=== PATIENT | female | born 1925 | race Caucasian/White ===

== ENCOUNTER 2017-03-30 19:29 | Inpatient (IN) | payer MEDICARE ==
[~2017-03-30] VITALS: Ht 154.9 cm; Wt 63.6 kg
[2017-03-30] MEDS ORDERED: ASPIRIN ENTERIC COATED 325 MG TABLET.DR. PO ONE (20:00)
[2017-03-30] MEDS ORDERED: IV NORMAL SALINE 1000ML BAG 1,000 ML IV SCH (20:00)
--- NOTE | 2017-03-30 20:04 | RAD ---
CT head without intravenous contrast History: Left facial droop, dysphagia. Code stroke. Comparison: None. Technique: Axial images are obtained of the head from the skull base through the vertex without IV contrast. Exposure: One or more of the following individualized dose reduction techniques were utilized for this examination: 1. Automated exposure control 2. Adjustment of the mA and/or kV according to patient size 3. Use of iterative reconstruction technique Findings: The ventricles are appropriate in size, shape, and location for the patient's age. No obvious intracranial mass, mass-effect, midline shift, or hemorrhage is identified. Basilar cisterns are patent. A well-defined area of low-attenuation is seen involving the medial inferior left cerebellar hemisphere measuring about 4.3 x 2.1 cm in maximum axial dimension. This is compatible with subacute left cerebellar infarction, probably in the left posterior inferior cerebellar artery territory. Moderate nonspecific periventricular and subcortical white matter low-attenuation is seen, likely representing changes of chronic microvascular ischemic disease. Bone windows demonstrate no acute calvarial abnormality. Mild left maxillary sinus disease is seen. Impression: 1. Subacute left cerebellar infarction. 2. Nonspecific white matter changes, probably from chronic microvascular ischemic disease. 3. Results discussed with emergency department staff, Dr. Pham, at 2000 hours. Electronically signed by: Christ Leos MD (03/30/2017 8:00 PM)
[2017-03-30 20:27] LABS: BASO # 0.1 x10^3/uL (0.0-0.2); BASO % 1 % (0-3); EOS % 2 % (0-3); HEMATOCRIT 33.4 % (36.0-47.0); HEMOGLOBIN 11.1 g/dL (12.0-15.5); LYMPH # 1.9 x10^3/uL (1.0-4.8); LYMPH % 18 % (24-48); MEAN CORPUSCULAR HEMOGLOBIN 28 pg (25-35); MEAN CORPUSCULAR HGB CONC 33 g/dL (31-37); MEAN CORPUSCULAR VOLUME 85 fL (79-100); MONO % 8 % (0-9); NEUT % 72 % (31-73); PLATELET COUNT 372 x10^3/uL (140-400); RED BLOOD COUNT 3.95 x10^6/uL (3.50-5.40); RED CELL DISTRIBUTION WIDTH 14.6 % (11.5-14.5); WHITE BLOOD COUNT 10.7 x10^3/uL (4.0-11.0)
--- NOTE | 2017-03-30 20:28 | PHYS DOC ---
Past Medical History Past Medical History: Anxiety, Arthritis, Constipation, GERD, Hypertension, Other Additional Past Medical Histor: VERTIGO Additional Past Surgical Histo: UNKNOWN SURGICAL HISTORY Alcohol Use: None Drug Use: None Adult General Chief Complaint Chief Complaint: ALTERED MENTAL STATUS HPI HPI Patient is a 89 year old female who presents with complaint of right-sided facial droop. The patient was brought into the emergency department by EMS. Patient was last seen at her baseline at approximate 1700 today. The patient had a syncopal episode shortly after that, and when the patient came to she had noted slurring of speech and right-sided facial droop per the patient's granddaughter. The patient's granddaughter called the ambulance and patient was brought to the emergency department for further evaluation. Patient states that she is having headache and dizziness at this time. Patient denies shortness breath or chest pain. The patient was recently admitted to [facility] after she had a fall with resultant closed head injury after striking her head on concrete. The patient was treated and released from the hospital. Patient states that she has had persistent headaches and mild dizziness since her hospital stay. Patient denies any nausea, vomiting, or vision loss. Review of Systems Review of Systems Constitutional: Denies fever or chills [] Eyes: Denies change in visual acuity, redness, or eye pain [] HENT: Denies nasal congestion or sore throat [] Respiratory: Denies cough or shortness of breath [] Cardiovascular: Denies chest pain or edema [] GI: Denies abdominal pain, nausea, vomiting, bloody stools or diarrhea [] : Denies dysuria or hematuria [] Musculoskeletal: Denies back pain or joint pain [] Integument: Denies rash or skin lesions [] Neurologic: Headache, dizziness, right-sided facial droop, left-sided loss of sensation [] Current Medications Current Medications Current Medications Medications (Trade) Dose Ordered Sig/Shyla Start Time Stop Time Status Last Admin Dose Admin Aspirin (Ecotrin) 325 mg 1X ONCE 03/30/17 20:00 03/30/17 20:32 DC 03/30/17 20:27 325 MG Sodium Chloride 1,000 ml @ 1,000 mls/hr Q1H 03/30/17 20:00 03/30/17 20:59 DC 03/30/17 20:27 1,000 MLS/HR Allergies Allergies Physical Exam Physical Exam Constitutional: Alert, afebrile, no acute distress. [] HENT: Normocephalic, atraumatic, bilateral external ears normal, oropharynx moist, no oral exudates, nose normal. [] Eyes: PERRLA, EOMI, conjunctiva normal, no discharge. [] Neck: Normal range of motion, no tenderness, supple, no stridor. [] Cardiovascular:Heart rate regular rhythm, no murmur [] Lungs & Thorax: Bilateral breath sounds clear to auscultation [] Abdomen: Bowel sounds normal, soft, no tenderness, no masses, no pulsatile masses. [] Skin: Warm, dry, no erythema, no rash. [] Back: No tenderness, no CVA tenderness. [] Extremities: No tenderness, no cyanosis, no clubbing, ROM intact, no edema. [] Neurologic: Alert and oriented X 3, right-sided facial droop that is forehead sparing, equal metal spray operator strength bilaterally, 4 out of 5 proximal left upper and lower motor strength, decreased sensation to light touch along left upper and lower extremity, no pronator drift. [] Current Patient Data Vital Signs Vital Signs Date Time Temp Pulse Resp B/P (MAP) Pulse Ox O2 Delivery O2 Flow Rate FiO2 03/30/17 20:15 64 171/77 (108) 97 Room Air 03/30/17 19:30 97.9 20 97.9 Lab Values Laboratory Tests Test 03/30/17 20:19 White Blood Count 10.7 x10^3/uL (4.0-11.0) Red Blood Count 3.95 x10^6/uL (3.50-5.40) Hemoglobin 11.1 g/dL (12.0-15.5) L Hematocrit 33.4 % (36.0-47.0) L Mean Corpuscular Volume 85 fL (79-100) Mean Corpuscular Hemoglobin 28 pg (25-35) Mean Corpuscular Hemoglobin Concent 33 g/dL (31-37) Red Cell Distribution Width 14.6 % (11.5-14.5) H Platelet Count 372 x10^3/uL (140-400) Neutrophils (%) (Auto) 72 % (31-73) Lymphocytes (%) (Auto) 18 % (24-48) L Monocytes (%) (Auto) 8 % (0-9) Eosinophils (%) (Auto) 2 % (0-3) Basophils (%) (Auto) 1 % (0-3) Neutrophils # (Auto) 7.7 x10^3uL (1.8-7.7) Lymphocytes # (Auto) 1.9 x10^3/uL (1.0-4.8) Monocytes # (Auto) 0.9 x10^3/uL (0.0-1.1) Eosinophils # (Auto) 0.2 x10^3/uL (0.0-0.7) Basophils # (Auto) 0.1 x10^3/uL (0.0-0.2) Prothrombin Time 12.9 SEC (11.7-14.0) Prothrombin Time INR 1.0 (0.8-1.1) PTT 27 SEC (24-38) Sodium Level 135 mmol/L (136-145) L Potassium Level 3.9 mmol/L (3.5-5.1) Chloride Level 97 mmol/L (98-107) L Carbon Dioxide Level 26 mmol/L (21-32) Anion Gap 12 (6-14) Blood Urea Nitrogen 17 mg/dL (7-20) Creatinine 1.0 mg/dL (0.6-1.0) Estimated GFR (Cockcroft-Gault) 52.2 BUN/Creatinine Ratio 17 (6-20) Glucose Level 116 mg/dL (70-99) H Calcium Level 9.3 mg/dL (8.5-10.1) Total Bilirubin 0.2 mg/dL (0.2-1.0) Aspartate Amino Transferase (AST) 22 U/L (15-37) Alanine Aminotransferase (ALT) 20 U/L (14-59) Alkaline Phosphatase 87 U/L (46-116) Total Protein 8.7 g/dL (6.4-8.2) H Albumin 3.7 g/dL (3.4-5.0) Albumin/Globulin Ratio 0.7 (1.0-1.7) L Laboratory Tests 03/30/17 20:19 Laboratory Tests 03/30/17 20:19 EKG EKG Interpreted by me: Heart rate 65, sinus rhythm, prolonged QT interval, normal axis, no acute ST/T-wave abnormalities present [] Radiology/Procedures Radiology/Procedures [facility] [address] [place] [address] IMAGING REPORT Signed PATIENT: JONAS HERNANDEZ ACCOUNT: [id number] : 1925 LOCATION: ER AGE: 89 SEX: F EXAM STATUS: REG ER ORD. PHYSICIAN: ALLYSSA PHAM MD REASON: right-sided facial droop PROCEDURE: CT CODE STROKE HEAD WO CT head without intravenous contrast History: Left facial droop, dysphagia. Code stroke. Comparison: None. Technique: Axial images are obtained of the head from the skull base through the vertex without IV contrast. Exposure: One or more of the following individualized dose reduction techniques were utilized for this examination: 1. Automated exposure control 2. Adjustment of the mA and/or kV according to patient size 3. Use of iterative reconstruction technique Findings: The ventricles are appropriate in size, shape, and location for the patient's age. No obvious intracranial mass, mass-effect, midline shift, or hemorrhage is identified. Basilar cisterns are patent. A well-defined area of low-attenuation is seen involving the medial inferior left cerebellar hemisphere measuring about 4.3 x 2.1 cm in maximum axial dimension. This is compatible with subacute left cerebellar infarction, probably in the left posterior inferior cerebellar artery territory. Moderate nonspecific periventricular and subcortical white matter low-attenuation is seen, likely representing changes of chronic microvascular ischemic disease. Bone windows demonstrate no acute calvarial abnormality. Mild left maxillary sinus disease is seen. Impression: 1. Subacute left cerebellar infarction. 2. Nonspecific white matter changes, probably from chronic microvascular ischemic disease. 3. Results discussed with emergency department staff, Dr. Pham, at 2000 hours. Electronically signed by: Christ Schaeffer MD (03/30/2017 8:00 PM) DICTATED and SIGNED BY: CHRIST SCHAEFFER MD DATE: 03/30/171954 CC: ALLYSSA PHAM MD; EDWINA CHEUNG MD ~ [] Course & Med Decision Making Course & Med Decision Making Pertinent Labs and Imaging studies reviewed. (See chart for details) Patient's NIH score was initially 4 upon arrival. Patient's head CT showed evidence of subacute left cerebellar stroke. Given the CT findings, the patient is not a candidate for TPA. I spoke with Dr. Rivera who agreed with assessment and agreed with initiation of aspirin therapy and supportive care. Patient will be admitted the hospital for further treatment and workup. I spoke with Dr. Perez who accepted care patient in hospital. Dragon Disclaimer Dragon Disclaimer This electronic medical record was generated, in whole or in part, using a voice recognition dictation system. Departure Departure Impression: Primary Impression: Acute CVA (cerebrovascular accident) Disposition: ADMITTED INPATIENT Admitting Physician: Pam Perez Condition: GUARDED Referrals: EDWINA CHEUNG MD (PCP) ALLYSSA PHAM MD Mar 30, 2017 20:28
--- NOTE | 2017-03-30 20:35 | ACF ---
Admission Forms Criteria TELEMETRY CARE Telemetry Admission Guidelines (Place 'X' for any and all applicable criteria): Admission to telemetry [A] may be indicated for ANY ONE of the following(1)(2)(3 )(4)(5): [ ]I. Cardiac disease, including ANY ONE of the following (9)(10)(11)(12)(13 ): [ ]a) Postacute OR [ ]b) Low-risk patients with ST-segment elevation OR who have undergone successful percutaneous coronary intervention [ ]c) Unstable angina [ ]d) Suspected OR (until it is ruled out) [ ]e) Post cardiac surgery (first 48 to 72 hours unless complications occur) [ ]f) Acute arrhythmias (including significant tachycardia or bradycardia) [B] [ ]g) Firing of an implantable cardioverter defibrillator [C] [ ]h) Suspected pacemaker or implantable cardioverter defibrillator malfunction (10) [ ]i) New administration or adjustment of an antiarrhythmic drug [D ] [ ]j) Child admitted for acute congestive heart failure [ ]j) Long QT syndrome [ ]k) Advanced heart block (eg, second-degree Mobitz type II, third- degree heart block) [ ]l) Acute myocarditis or pericarditis [ ]m) Short-term (ambulatory or inpatient) monitoring after a cardiac procedure as indicated by ANY ONE of the following [E]: [ ]i) Electrophysiologic studies [ ]ii) Percutaneous coronary intervention with stent placement [ ]iii) Pacemaker placement with cardiac conduction defect [ ]iv) Implantable cardiac defibrillator placement [ ]II. Drug overdose or poisoning with substance that causes arrhythmias or QT prolongation (eg, phenothiazines, sympathomimetic agents, cyclic antidepressants, digitalis, antiarrhythmic drugs)(15) [ ]III. Short-term (ambulatory or inpatient) monitoring after therapeutic or diagnostic procedure requiring conscious sedation or anesthesia (eg, endoscopy, elective cardioversion) [X]IV. Acute cerebrovascular even[F](18) [ ]V. Massive blood transfusion (eg, at least 10 units of packed red blood cells in 24 hours) [ ]. Variceal bleeding after endoscopy, sclerotherapy, or IV vasopressin [ ]VII. Uncorrected electrolyte abnormalities associated with an increased risk of dangerous arrhythmia [G]; examples include [ ]a) Hyperkalemia with attributable ECG changes [ ]b) Potassium greater than 6.5 mmol/L (mEq/L) in a patient without history of chronic renal disease [ ]c) Prolonged QT attributed to hypokalemia, hypomagnesemia, or hypocalcemia [ ]VIII.Unexplained syncope or other neurologic event suspected of being due to arrhythmia due to a finding that increases risk; examples include(19)(20)(21): [ ]a) High-risk ECG findings (eg, bifascicular block, bradycardia, abnormal QT interval, ventricular pre- excitation) [ ]b) History of previous syncope due to arrhythmia [ ]c) Abnormal ventricular function (eg, reduced ejection fraction ) [ ]d) Exertional or supine syncope [ ]e) Concerning syncope characteristics (eg, sudden loss of consciousness without prodrome) [ ]f) Family history of sudden [ ]g) Use of arrhythmogenic medication [ ]h) Suspected cardiac ischemia [ ]i) Known channelopathy (eg, long QT syndrome, Brugada syndrome, or catecholaminergic paroxysmal ventricular tachycardia) [ ]j) Known structural heart disease (eg, hypertrophic cardiomyopathy , severe valvular disease) [ ]k) Palpitations preceding syncope The original [employer] content created by [employer] has been revised. The portions of the content which have been revised are identified through the use of italic text or in bold, and [email or web address] includes the [email or web address] has neither reviewed nor approved the modified material. All other unmodified content is copyright [employer]. Please see references footnoted in the original [employer] edition 2016 Admission Criteria Met?: Yes HELGA FERMIN Mar 30, 2017 20:35
[2017-03-30 20:40] LABS: PROTHROMBIN TIME PATIENT 12.9 SEC (11.7-14.0)
[2017-03-30 20:43] LABS: CALCIUM 9.3 mg/dL (8.5-10.1); GFR 52.2; POTASSIUM 3.9 mmol/L (3.5-5.1)
[2017-03-30 20:46] LABS: BILIRUBIN,URINE NEGATIVE (NEG); GLUCOSE,URINE NEGATIVE (NEG); NITRITE,URINE NEGATIVE (NEG); PROTEIN,URINE 100 mg/dL (NEG-TRACE); UROBILINOGEN,URINE 0.2 mg/dL (0.2 mg/dL)
[2017-03-30 20:49] LABS: ALBUMIN 3.7 g/dL (3.4-5.0); ALBUMIN/GLOBULIN RATIO 0.7 (1.0-1.7); TOTAL BILIRUBIN 0.2 mg/dL (0.2-1.0); TOTAL PROTEIN 8.7 g/dL (6.4-8.2)
[2017-03-30 20:59] LABS: BACTERIA,URINE 0 /HPF (0-FEW); WBC,URINE 0 /HPF (0-4)
[2017-03-30 21:05] VITALS: BP 160/72
[2017-03-30] MEDS ORDERED: fentaNYL PF VIAL 100 MCG/2 ML VIAL IV PRN (21:30)
[2017-03-30] MEDS ORDERED: ONDANSETRON PF 4 MG/2 ML VIAL. IV PRN (21:30)
[2017-03-30] MEDS ORDERED: ACETAMINOPHEN 325 MG TABLET. PO PRN (21:30)
[2017-03-30] MEDS: IV NORMAL SALINE 1000ML BAG 1,000 ML IV SCH (22:30)
--- NOTE | 2017-03-30 22:49 | PDOC1 ---
History and Physical Date of Admission Date of Admission DATE: 03/30/17 TIME: 22:49 Current Problem List Problem List Problems Medical Problems: (1) Acute CVA (cerebrovascular accident) Status: Acute Problems: Current Medications Current Medications Current Medications Sodium Chloride 1,000 ml @ 1,000 mls/hr Q1H IV Last administered on 03/30/17 20:27; Start 03/30/17 at 20:00; Stop 03/30/17 at 20:59; Status DC Aspirin (Ecotrin) 325 mg 1X ONCE PO Last administered on 03/30/17 20:27; Start 03/30/17 at 20:00; Stop 03/30/17 at 20:32; Status DC Ondansetron HCl (Zofran) 4 mg PRN Q8HRS PRN IV NAUSEA/VOMITING; Start 03/30/17 at 21:30; Stop 03/31/17 at 21:29 Fentanyl Citrate (Fentanyl 2ml Vial) 50 mcg PRN Q2HR PRN IV PAIN; Start at 21:30; Stop 03/31/17 at 21:29 Sodium Chloride 1,000 ml @ 100 mls/hr Q10H IV Last administered on 03/30/17 22:30; Start 03/30/17 at 21:17; Stop 03/31/17 at 21:16 Acetaminophen (Tylenol) 650 mg PRN Q4HRS PRN PO FEVER; Start 03/30/17 at 21:30 ; Stop 03/31/17 at 21:29 Aspirin (Angelica Aspirin) 325 mg [id number] PO ; Start 03/31/17 at 08:00 Allergies Allergies: Coded Allergies: Penicillins (Verified Allergy, Unknown, 03/30/17) codeine (Verified Allergy, Unknown, 03/30/17) ether (Verified Allergy, Unknown, 03/30/17) nisoldipine (Verified Allergy, Unknown, 03/30/17) oxytetracycline (Verified Allergy, Unknown, 03/30/17) propoxyphene (Verified Allergy, Unknown, 03/30/17) Vitals Vitals Vital Signs Date Time Temp Pulse Resp B/P (MAP) Pulse Ox O2 Delivery O2 Flow Rate FiO2 03/30/17 21:05 97.8 66 28 160/72 (101) 98 Room Air 97.8 Labs Labs Laboratory Tests Test 03/30/17 20:19 6/26/17 20:38 White Blood Count 10.7 x10^3/uL (4.0-11.0) Red Blood Count 3.95 x10^6/uL (3.50-5.40) Hemoglobin 11.1 g/dL (12.0-15.5) Hematocrit 33.4 % (36.0-47.0) Mean Corpuscular Volume 85 fL (79-100) Mean Corpuscular Hemoglobin 28 pg (25-35) Mean Corpuscular Hemoglobin Concent 33 g/dL (31-37) Red Cell Distribution Width 14.6 % (11.5-14.5) Platelet Count 372 x10^3/uL (140-400) Neutrophils (%) (Auto) 72 % (31-73) Lymphocytes (%) (Auto) 18 % (24-48) Monocytes (%) (Auto) 8 % (0-9) Eosinophils (%) (Auto) 2 % (0-3) Basophils (%) (Auto) 1 % (0-3) Neutrophils # (Auto) 7.7 x10^3uL (1.8-7.7) Lymphocytes # (Auto) 1.9 x10^3/uL (1.0-4.8) Monocytes # (Auto) 0.9 x10^3/uL (0.0-1.1) Eosinophils # (Auto) 0.2 x10^3/uL (0.0-0.7) Basophils # (Auto) 0.1 x10^3/uL (0.0-0.2) Prothrombin Time 12.9 SEC (11.7-14.0) Prothromb Time International Ratio 1.0 (0.8-1.1) Activated Partial Thromboplast Time 27 SEC (24-38) Sodium Level 135 mmol/L (136-145) Potassium Level 3.9 mmol/L (3.5-5.1) Chloride Level 97 mmol/L (98-107) Carbon Dioxide Level 26 mmol/L (21-32) Anion Gap 12 (6-14) Blood Urea Nitrogen 17 mg/dL (7-20) Creatinine 1.0 mg/dL (0.6-1.0) Estimated GFR (Cockcroft-Gault) 52.2 BUN/Creatinine Ratio 17 (6-20) Glucose Level 116 mg/dL (70-99) Calcium Level 9.3 mg/dL (8.5-10.1) Total Bilirubin 0.2 mg/dL (0.2-1.0) Aspartate Amino Transf (AST/SGOT) 22 U/L (15-37) Alanine Aminotransferase (ALT/SGPT) 20 U/L (14-59) Alkaline Phosphatase 87 U/L (46-116) Total Protein 8.7 g/dL (6.4-8.2) Albumin 3.7 g/dL (3.4-5.0) Albumin/Globulin Ratio 0.7 (1.0-1.7) Urine Collection Type U cath Urine Color Yellow Urine Clarity Clear Urine pH 6.0 Urine Specific [place] 1.010 Urine Protein 100 mg/dL (NEG-TRACE) Urine Glucose (UA) Negative mg/dL (NEG) Urine Ketones (Stick) Negative mg/dL (NEG) Urine Blood Trace (NEG) Urine Nitrite Negative (NEG) Urine Bilirubin Negative (NEG) Urine Urobilinogen Dipstick 0.2 mg/dL (0.2 mg/dL) Urine Leukocyte Esterase Negative (NEG) Urine RBC 1-2 /HPF (0-2) Urine WBC 0 /HPF (0-4) Urine Bacteria 0 /HPF (0-FEW) Urine Mucus Mod /LPF Laboratory Tests Test 03/30/17 20:19 03/30/17 20:38 White Blood Count 10.7 x10^3/uL (4.0-11.0) Red Blood Count 3.95 x10^6/uL (3.50-5.40) Hemoglobin 11.1 g/dL (12.0-15.5) Hematocrit 33.4 % (36.0-47.0) Mean Corpuscular Volume 85 fL (79-100) Mean Corpuscular Hemoglobin 28 pg (25-35) Mean Corpuscular Hemoglobin Concent 33 g/dL (31-37) Red Cell Distribution Width 14.6 % (11.5-14.5) Platelet Count 372 x10^3/uL (140-400) Neutrophils (%) (Auto) 72 % (31-73) Lymphocytes (%) (Auto) 18 % (24-48) Monocytes (%) (Auto) 8 % (0-9) Eosinophils (%) (Auto) 2 % (0-3) Basophils (%) (Auto) 1 % (0-3) Neutrophils # (Auto) 7.7 x10^3uL (1.8-7.7) Lymphocytes # (Auto) 1.9 x10^3/uL (1.0-4.8) Monocytes # (Auto) 0.9 x10^3/uL (0.0-1.1) Eosinophils # (Auto) 0.2 x10^3/uL (0.0-0.7) Basophils # (Auto) 0.1 x10^3/uL (0.0-0.2) Prothrombin Time 12.9 SEC (11.7-14.0) Prothromb Time International Ratio 1.0 (0.8-1.1) Activated Partial Thromboplast Time 27 SEC (24-38) Sodium Level 135 mmol/L (136-145) Potassium Level 3.9 mmol/L (3.5-5.1) Chloride Level 97 mmol/L (98-107) Carbon Dioxide Level 26 mmol/L (21-32) Anion Gap 12 (6-14) Blood Urea Nitrogen 17 mg/dL (7-20) Creatinine 1.0 mg/dL (0.6-1.0) Estimated GFR (Cockcroft-Gault) 52.2 BUN/Creatinine Ratio 17 (6-20) Glucose Level 116 mg/dL (70-99) Calcium Level 9.3 mg/dL (8.5-10.1) Total Bilirubin 0.2 mg/dL (0.2-1.0) Aspartate Amino Transf (AST/SGOT) 22 U/L (15-37) Alanine Aminotransferase (ALT/SGPT) 20 U/L (14-59) Alkaline Phosphatase 87 U/L (46-116) Total Protein 8.7 g/dL (6.4-8.2) Albumin 3.7 g/dL (3.4-5.0) Albumin/Globulin Ratio 0.7 (1.0-1.7) Urine Collection Type U cath Urine Color Yellow Urine Clarity Clear Urine pH 6.0 Urine Specific [place] 1.010 Urine Protein 100 mg/dL (NEG-TRACE) Urine Glucose (UA) Negative mg/dL (NEG) Urine Ketones (Stick) Negative mg/dL (NEG) Urine Blood Trace (NEG) Urine Nitrite Negative (NEG) Urine Bilirubin Negative (NEG) Urine Urobilinogen Dipstick 0.2 mg/dL (0.2 mg/dL) Urine Leukocyte Esterase Negative (NEG) Urine RBC 1-2 /HPF (0-2) Urine WBC 0 /HPF (0-4) Urine Bacteria 0 /HPF (0-FEW) Urine Mucus Mod /LPF MARY NELSON MD Mar 30, 2017 22:49
[2017-03-30 23:00] VITALS: BP 169/73
--- NOTE | 2017-03-30 23:22 | PDOC1 ---
History and Physical Date of Admission Date of Admission DATE: 03/30/17 TIME: 23:15 Identification/Chief Complaint Chief Complaint facial droop Problems: Source Source: Caregiver, Chart review, Patient History of Present Illness History of Present Illness Ms. Abbasi was in Dr. moses office today for f/u of concussion from last week. Fell a week ago, was at [place], MRI done, post-concussion only. Then today, 1700, sudden onset of left sided facial droop and slurring her speech. Symptoms noticed by her granddaughter, pt denies that she felt any different or had any problem she has been largely healthy, very compliant with meds, does not drive due to Vertigo, 1 yr vertigo, meclizine PRN helps Past Medical History Cardiovascular: HTN Psych: No pertinent hx Family History Family History: No Significant Social History Smoke: No ALCOHOL: none Drugs: None Current Problem List Problem List Problems Medical Problems: (1) Acute CVA (cerebrovascular accident) Status: Acute Problems: Current Medications Current Medications Current Medications Sodium Chloride 1,000 ml @ 1,000 mls/hr Q1H IV Last administered on 03/30/17 20:27; Start 03/30/17 at 20:00; Stop 03/30/17 at 20:59; Status DC Aspirin (Ecotrin) 325 mg 1X ONCE PO Last administered on 03/30/17 20:27; Start 03/30/17 at 20:00; Stop 03/30/17 at 20:32; Status DC Ondansetron HCl (Zofran) 4 mg PRN Q8HRS PRN IV NAUSEA/VOMITING; Start 03/30/17 at 21:30; Stop 03/31/17 at 21:29 Fentanyl Citrate (Fentanyl 2ml Vial) 50 mcg PRN Q2HR PRN IV PAIN; Start at 21:30; Stop 03/31/17 at 21:29 Sodium Chloride 1,000 ml @ 100 mls/hr Q10H IV Last administered on 03/30/17 22:30; Start 03/30/17 at 21:17; Stop 03/31/17 at 21:16 Acetaminophen (Tylenol) 650 mg PRN Q4HRS PRN PO FEVER; Start 03/30/17 at 21:30 ; Stop 03/31/17 at 21:29 Aspirin (Angelica Aspirin) 325 mg DAILYWBKFT PO ; Start 03/31/17 at 08:00 Allergies Allergies: Coded Allergies: Iodinated Contrast- Oral and IV Dye (Verified Allergy, Severe, 03/30/17) Horse/Equine Containing Products (Verified Allergy, Intermediate, 03/30/17) Penicillins (Verified Allergy, Intermediate, 03/30/17) Sulfa (Sulfonamide Antibiotics) (Verified Allergy, Intermediate, 03/30/17) codeine (Verified Allergy, Intermediate, 03/30/17) ether (Verified Allergy, Intermediate, 03/30/17) mercury (elemental) (Verified Allergy, Intermediate, 03/30/17) nisoldipine (Verified Allergy, Intermediate, 03/30/17) oxytetracycline (Verified Allergy, Intermediate, 03/30/17) propoxyphene (Verified Allergy, Intermediate, 03/30/17) ROS General: YES: Appetite, No: Chills, Night Sweats, Fatigue, Malaise, Other PSYCHOLOGICAL ROS: YES: Sleep disturbances, No: Anxiety, Behavioral Disorder, Concentration difficultie, Decreased libido , Depression, Disorientation, Hallucinations, Hostility, Irritablity, Memory difficulties, Mood Swings, Obsessive thoughts, Other Eyes: No Blurry vision, No Decreased vision, No Double vision, No Dry eyes, No Excessive tearing, No Eye Pain, No Itchy Eyes, No Loss of vision, No Photophobia , No Scotomata, No Uses contacts, No Uses glasses, No Other HEENT: YES: Heacaches, No: Visual Changes, Hearing change, Nasal congestion, Nasal discharge, Oral lesions, Sinus pain, Sore Throat, Epistaxis, Sneezing, Snoring, Tinnitus, Vertigo, Vocal changes, Other Cardiovascular: No Chest Pain, No Palpitations, No Orthopnea, No Paroxysmal Noc. Dyspnea, No Edema, No Lt Headedness, No Other Gastrointestinal: No Nausea, No Vomiting, No Abdominal Pain, No Diarrhea, No Constipation, No Melena, No Hematochezia, No Other Genitourinary: No Dysuria, No Frequency, No Incontinence, No Hematuria, No Retention, No Discharge, No Urgency, No Pain, No Flank Pain, No Other, No , No , No , No , No , No , No Musculoskeletal: Yes Joint Stiffness, No Gait Disturbance, No Joint Pain, No Joint Swelling, No Muscle Pain, No Muscular Weakness, No Pain In:, No Swelling In:, No Other Neurological: Yes Dizziness, Yes Other (hard of hearing), No Behavorial Changes, No Bowel/Bladder ControlChng, No Confusion, No Gait Disturbance, No Headaches, No Impaired Coord/balance, No Memory Loss, No Numbness/Tingling, No Seizures, No Speech Problems, No Tremors, No Visual Changes Skin: No Dry Skin, No Eczema, No Hair Changes, No Lumps, No Mole Changes, No Mottling, No Nail Changes, No Pruritus, No Rash, No Skin Lesion Changes, No Other, No Acne Physical Exam General: Alert, Oriented X3, Cooperative, No acute distress HEENT: Atraumatic, EOMI, Mucous membr. moist/pink Lungs: Clear to auscultation Heart: no gallops, no murmurs Abdomen: Normal bowel sounds, Soft Rectal Exam: not examined Extremities: No clubbing, No edema Skin: No rashes, No significant lesion Neuro: Normal speech, Strength at 5/5 X4 ext, Normal tone, Sensation intact, Other (good facial str and symmetry) Psych/Mental Status: Mental status NL, Mood NL Vitals Vitals Vital Signs Date Time Temp Pulse Resp B/P (MAP) Pulse Ox O2 Delivery O2 Flow Rate FiO2 03/30/17 21:05 97.8 66 28 160/72 (101) 98 Room Air 97.8 Labs Labs Laboratory Tests Test 03/30/17 20:19 03/30/17 20:38 White Blood Count 10.7 x10^3/uL (4.0-11.0) Red Blood Count 3.95 x10^6/uL (3.50-5.40) Hemoglobin 11.1 g/dL (12.0-15.5) Hematocrit 33.4 % (36.0-47.0) Mean Corpuscular Volume 85 fL (79-100) Mean Corpuscular Hemoglobin 28 pg (25-35) Mean Corpuscular Hemoglobin Concent 33 g/dL (31-37) Red Cell Distribution Width 14.6 % (11.5-14.5) Platelet Count 372 x10^3/uL (140-400) Neutrophils (%) (Auto) 72 % (31-73) Lymphocytes (%) (Auto) 18 % (24-48) Monocytes (%) (Auto) 8 % (0-9) Eosinophils (%) (Auto) 2 % (0-3) Basophils (%) (Auto) 1 % (0-3) Neutrophils # (Auto) 7.7 x10^3uL (1.8-7.7) Lymphocytes # (Auto) 1.9 x10^3/uL (1.0-4.8) Monocytes # (Auto) 0.9 x10^3/uL (0.0-1.1) Eosinophils # (Auto) 0.2 x10^3/uL (0.0-0.7) Basophils # (Auto) 0.1 x10^3/uL (0.0-0.2) Prothrombin Time 12.9 SEC (11.7-14.0) Prothromb Time International Ratio 1.0 (0.8-1.1) Activated Partial Thromboplast Time 27 SEC (24-38) Sodium Level 135 mmol/L (136-145) Potassium Level 3.9 mmol/L (3.5-5.1) Chloride Level 97 mmol/L (98-107) Carbon Dioxide Level 26 mmol/L (21-32) Anion Gap 12 (6-14) Blood Urea Nitrogen 17 mg/dL (7-20) Creatinine 1.0 mg/dL (0.6-1.0) Estimated GFR (Cockcroft-Gault) 52.2 BUN/Creatinine Ratio 17 (6-20) Glucose Level 116 mg/dL (70-99) Calcium Level 9.3 mg/dL (8.5-10.1) Total Bilirubin 0.2 mg/dL (0.2-1.0) Aspartate Amino Transf (AST/SGOT) 22 U/L (15-37) Alanine Aminotransferase (ALT/SGPT) 20 U/L (14-59) Alkaline Phosphatase 87 U/L (46-116) Total Protein 8.7 g/dL (6.4-8.2) Albumin 3.7 g/dL (3.4-5.0) Albumin/Globulin Ratio 0.7 (1.0-1.7) Urine Collection Type U cath Urine Color Yellow Urine Clarity Clear Urine pH 6.0 Urine Specific [place] 1.010 Urine Protein 100 mg/dL (NEG-TRACE) Urine Glucose (UA) Negative mg/dL (NEG) Urine Ketones (Stick) Negative mg/dL (NEG) Urine Blood Trace (NEG) Urine Nitrite Negative (NEG) Urine Bilirubin Negative (NEG) Urine Urobilinogen Dipstick 0.2 mg/dL (0.2 mg/dL) Urine Leukocyte Esterase Negative (NEG) Urine RBC 1-2 /HPF (0-2) Urine WBC 0 /HPF (0-4) Urine Bacteria 0 /HPF (0-FEW) Urine Mucus Mod /LPF Laboratory Tests Test 03/30/17 20:19 03/30/17 20:38 White Blood Count 10.7 x10^3/uL (4.0-11.0) Red Blood Count 3.95 x10^6/uL (3.50-5.40) Hemoglobin 11.1 g/dL (12.0-15.5) Hematocrit 33.4 % (36.0-47.0) Mean Corpuscular Volume 85 fL (79-100) Mean Corpuscular Hemoglobin 28 pg (25-35) Mean Corpuscular Hemoglobin Concent 33 g/dL (31-37) Red Cell Distribution Width 14.6 % (11.5-14.5) Platelet Count 372 x10^3/uL (140-400) Neutrophils (%) (Auto) 72 % (31-73) Lymphocytes (%) (Auto) 18 % (24-48) Monocytes (%) (Auto) 8 % (0-9) Eosinophils (%) (Auto) 2 % (0-3) Basophils (%) (Auto) 1 % (0-3) Neutrophils # (Auto) 7.7 x10^3uL (1.8-7.7) Lymphocytes # (Auto) 1.9 x10^3/uL (1.0-4.8) Monocytes # (Auto) 0.9 x10^3/uL (0.0-1.1) Eosinophils # (Auto) 0.2 x10^3/uL (0.0-0.7) Basophils # (Auto) 0.1 x10^3/uL (0.0-0.2) Prothrombin Time 12.9 SEC (11.7-14.0) Prothromb Time International Ratio 1.0 (0.8-1.1) Activated Partial Thromboplast Time 27 SEC (24-38) Sodium Level 135 mmol/L (136-145) Potassium Level 3.9 mmol/L (3.5-5.1) Chloride Level 97 mmol/L (98-107) Carbon Dioxide Level 26 mmol/L (21-32) Anion Gap 12 (6-14) Blood Urea Nitrogen 17 mg/dL (7-20) Creatinine 1.0 mg/dL (0.6-1.0) Estimated GFR (Cockcroft-Gault) 52.2 BUN/Creatinine Ratio 17 (6-20) Glucose Level 116 mg/dL (70-99) Calcium Level 9.3 mg/dL (8.5-10.1) Total Bilirubin 0.2 mg/dL (0.2-1.0) Aspartate Amino Transf (AST/SGOT) 22 U/L (15-37) Alanine Aminotransferase (ALT/SGPT) 20 U/L (14-59) Alkaline Phosphatase 87 U/L (46-116) Total Protein 8.7 g/dL (6.4-8.2) Albumin 3.7 g/dL (3.4-5.0) Albumin/Globulin Ratio 0.7 (1.0-1.7) Urine Collection Type U cath Urine Color Yellow Urine Clarity Clear Urine pH 6.0 Urine Specific [place] 1.010 Urine Protein 100 mg/dL (NEG-TRACE) Urine Glucose (UA) Negative mg/dL (NEG) Urine Ketones (Stick) Negative mg/dL (NEG) Urine Blood Trace (NEG) Urine Nitrite Negative (NEG) Urine Bilirubin Negative (NEG) Urine Urobilinogen Dipstick 0.2 mg/dL (0.2 mg/dL) Urine Leukocyte Esterase Negative (NEG) Urine RBC 1-2 /HPF (0-2) Urine WBC 0 /HPF (0-4) Urine Bacteria 0 /HPF (0-FEW) Urine Mucus Mod /LPF VTE Prophylaxis Ordered VTE Prophylaxis Devices: Yes VTE Pharmacological Prophylaxi: No Assessment/Plan Assessment/Plan CVA, acute CVA syndrome CT shows prior CVA. recent negative imaging improving very quickly, would be TIA without imaging support, plan w/u in AM, carotids, MRI, echo, lipids Neuro consult PT OT speech HTN, home meds not listed this PM, please rectify in AM admit MARY NELSON MD Mar 30, 2017 23:22
[2017-03-31] MEDS ORDERED: DOCU-109 PO (02:00)
[2017-03-31] MEDS ORDERED: LOPE2CAP3 PO (02:00)
[2017-03-31] MEDS ORDERED: AMLO10TA2 PO (02:00)
[2017-03-31] MEDS ORDERED: LANS30CA66 PO (02:00)
[2017-03-31] MEDS ORDERED: ATEN50TA PO (02:00)
[2017-03-31] MEDS ORDERED: SERT25TA PO (02:00)
[2017-03-31] MEDS ORDERED: CLON0.1T PO (02:00)
[2017-03-31] MEDS ORDERED: OLME40TA12 PO (02:00)
[2017-03-31] MEDS ORDERED: MECL25TA3 PO (02:00)
[2017-03-31] MEDS ORDERED: ACET325T9 PO (02:00)
[2017-03-31 03:00] VITALS: BP 158/69
[2017-03-31 05:28] LABS: BASO % 0 % (0-3); EOS % 1 % (0-3); HEMATOCRIT 30.3 % (36.0-47.0); HEMOGLOBIN 10.2 g/dL (12.0-15.5); LYMPH # 2.6 x10^3/uL (1.0-4.8); LYMPH % 26 % (24-48); MEAN CORPUSCULAR HEMOGLOBIN 28 pg (25-35); MEAN CORPUSCULAR HGB CONC 34 g/dL (31-37); MEAN CORPUSCULAR VOLUME 85 fL (79-100); MONO % 8 % (0-9); NEUT % 65 % (31-73); PLATELET COUNT 319 x10^3/uL (140-400); RED BLOOD COUNT 3.57 x10^6/uL (3.50-5.40); RED CELL DISTRIBUTION WIDTH 14.8 % (11.5-14.5); WHITE BLOOD COUNT 9.8 x10^3/uL (4.0-11.0)
[2017-03-31 05:40] LABS: CALCIUM 8.7 mg/dL (8.5-10.1); CREATININE 0.9 mg/dL (0.6-1.0); POTASSIUM 4.2 mmol/L (3.5-5.1)
[2017-03-31 05:45] LABS: CHOLESTEROL 332 mg/dL (0-200); HDLC 28 mg/dL (40-60); NON-HDL CHOLESTEROL 304 mg/dL (0-129)
[2017-03-31 05:59] LABS: TRIGLYCERIDES 623 mg/dL (0-150)
[2017-03-31 06:05] LABS: CHOLESTEROL/HDL RATIO 11.9
--- NOTE | 2017-03-31 06:35 | EKG ---
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
[2017-03-31 07:22] VITALS: BP 176/66
--- NOTE | 2017-03-31 07:44 | RAD ---
Indication: Facial droop and weakness. Grayscale, color-flow and duplex Doppler evaluation of bilateral carotid systems was performed. There is plaque identified in the distal common carotid arteries bilaterally and carotid bulbs, extending into the proximal internal and external carotid arteries. No significant velocity elevation within the common or internal carotid arteries is seen. Peak common carotid artery velocity on the right is 72 cm/s and on the left 72 cm/s. Peak ICA velocity on the right is 73 cm/s and on the left 62 cm/s. There are elevated velocities in the left external carotid artery reaching 241 cm/s. Both vertebral arteries demonstrate antegrade flow. ICA to CCA ratio on the right is 1.0 and on the left 0.9. Impression: Mild bilateral carotid plaque. There is no evidence of a hemodynamically significant stenosis within either common carotid or internal carotid artery system.
[2017-03-31] MEDS ORDERED: ASPIRIN 325 MG TABLET PO SCH (08:00)
[2017-03-31] MEDS ORDERED: ASPIRIN ENTERIC COATED 325 MG TABLET.DR. PO ONE (10:15)
[2017-03-31] MEDS: IV NORMAL SALINE 1000ML BAG 1,000 ML IV SCH ×2 (10:29→20:03)
[2017-03-31] MEDS ORDERED: ACETAMINOPHEN 325 MG TABLET. PO PRN ×2 (10:30→11:00)
--- NOTE | 2017-03-31 10:31 | PDOC2 ---
NEUROLOGY CONSULT Date of Admission Date of Admission DATE: 03/31/17 TIME: 10:23 Reason for Consult Reason for Consult: Stroke Referring Physician Referring Physician: Dr. Perez PCP: Dr. Hayes Source Source: Chart review, Patient History of Present Illness History of Present Illness The patient is an 89-year-old right-handed female who presented with right facial droop and leg weakness. Symptoms started at 1700 yesterday. The patient had some slurred speech, right facial droop, brief syncope, and then awakened with right leg and face weakness. In our emergency department NIH score was 4 and patient was improving. The patient was hospitalized at [facility] last week after concussion. She got dizzy and foul on concrete, striking her head with loss of consciousness. The patient denies any history of stroke, seizure, or other head injury. She is feeling better this morning. Past Medical History Cardiovascular: HTN CENTRAL NERVOUS SYSTEM: Vertigo, Other ( concussion) GI: Constipation, GERD Psych: Anxiety, Depression Musculoskeletal: Osteoarthritis Renal/: Other ( urinary hesitancy) Past Surgical History Past Surgical History: Tonsillectomy ( adenoidectomy), Hysterectomy, Other ( sinus) Family History Family History: CAD Social History Social History , lives alone, no alcohol or tobacco Current Medications Current Medications Current Medications Sodium Chloride 1,000 ml @ 1,000 mls/hr Q1H IV Last administered on 03/30/17 20:27; Start 03/30/17 at 20:00; Stop 03/30/17 at 20:59; Status DC Aspirin (Ecotrin) 325 mg 1X ONCE PO Last administered on 03/30/17 20:27; Start 03/30/17 at 20:00; Stop 03/30/17 at 20:32; Status DC Ondansetron HCl (Zofran) 4 mg PRN Q8HRS PRN IV NAUSEA/VOMITING; Start 03/30/17 at 21:30; Stop 03/31/17 at 21:29 Fentanyl Citrate (Fentanyl 2ml Vial) 50 mcg PRN Q2HR PRN IV PAIN; Start at 21:30; Stop 03/31/17 at 21:29 Sodium Chloride 1,000 ml @ 100 mls/hr Q10H IV Last administered on 03/30/17 22:30; Start 03/30/17 at 21:17; Stop 03/31/17 at 21:16 Acetaminophen (Tylenol) 650 mg PRN Q4HRS PRN PO FEVER; Start 03/30/17 at 21:30 ; Stop 03/31/17 at 21:29 Aspirin (Angelica Aspirin) 325 mg DAILYWBKFT PO ; Start 03/31/17 at 08:00; Stop at 10:16; Status DC Simvastatin (Zocor) 10 mg QHS PO ; Start 03/31/17 at 21:00 Aspirin (Ecotrin) 325 mg DAILYWBKFT PO ; Start 04/01/17 at 08:00 Aspirin (Ecotrin) 325 mg 1X ONCE PO ; Start 03/31/17 at 10:15; Stop 03/31/17 at 10:17; Status DC Acetaminophen (Tylenol) 650 mg PRN Q6HRS PRN PO PAIN; Start 03/31/17 at 10:30 Active Scripts Active Reported Anti-Diarrheal (Loperamide Hcl) 2 Mg Capsule 2 Mg PO Q2HR PRN Colace (Docusate Sodium) 100 Mg Capsule 100 Mg PO DAILY PRN Tylenol (Acetaminophen) 325 Mg Tablet 650 Mg PO BID Meclizine Hcl 25 Mg Tablet 25 Mg PO Q6HRS Amlodipine Besylate 10 Mg Tablet 10 Mg PO DAILY Atenolol 50 Mg Tablet 50 Mg PO DAILY Clonidine Hcl 0.1 Mg Tablet 0.1 Mg PO TID Prevacid (Lansoprazole) 30 Mg Capsule.dr 30 Mg PO DAILY Zoloft (Sertraline Hcl) 25 Mg Tablet 25 Mg PO DAILY Benicar (Olmesartan Medoxomil) 40 Mg Tablet 40 Mg PO DAILY Allergies Allergies: Coded Allergies: Iodinated Contrast- Oral and IV Dye (Verified Allergy, Severe, 03/30/17) Horse/Equine Containing Products (Verified Allergy, Intermediate, 03/30/17) Penicillins (Verified Allergy, Intermediate, 03/30/17) Sulfa (Sulfonamide Antibiotics) (Verified Allergy, Intermediate, 03/30/17) codeine (Verified Allergy, Intermediate, 03/30/17) ether (Verified Allergy, Intermediate, 03/30/17) mercury (elemental) (Verified Allergy, Intermediate, 03/30/17) nisoldipine (Verified Allergy, Intermediate, 03/30/17) oxytetracycline (Verified Allergy, Intermediate, 03/30/17) propoxyphene (Verified Allergy, Intermediate, 03/30/17) ROS Review of System Negative for fevers, chills, weight loss, shortness of breath, chest pain, indigestion, hematochezia, melena, dysuria. Full 14-point review systems is negative. Physical Exam Physical Examination PHYSICAL EXAMINATION: Vital signs: see above. General appearance is normal and in no acute distress. HEENT: Normocephalic and nontraumatic. Eyes, nose, ears, and throat are unremarkable. Neck is supple. No lymphadenopathy. No bruits are heard over the carotid artery. No crepitus. NEUROLOGICAL EXAMINATION: Mental Status Examination: Alert. Oriented to time, place, and person.Answers questions and follows commends. Pupils are equal round and reactive to light and accommodation. Extraocular movements are intact. Visual field exam shows no defect on the direct confrontation. There is a right central facial weakness. Uvula in the midline and the soft palate elevated symmetrically. No deviation of the tongue to any direction. Gross hearing is decreased. Shoulder shrug normal. Muscle tone is normal. Muscle strength is 4/5 right leg, 5/5 for age, elsewhere. Deep tendon reflexes are 2+ all around. Plantar reflex is with flexion response bilaterally. [id number] test performance is accurate. Alternative movements are accurate. Gait not tested. Sensory exam shows no deficits. No cerebellar signs are elicited. Vitals VITALS Vital Signs Date Time Temp Pulse Resp B/P (MAP) Pulse Ox O2 Delivery O2 Flow Rate FiO2 03/31/17 08:00 Room Air 03/31/17 07:22 98.2 71 20 176/66 (102) 95 98.2 Labs Labs Laboratory Tests Test 03/30/17 20:19 03/30/17 20:38 03/31/17 04:30 White Blood Count 10.7 x10^3/uL (4.0-11.0) 9.8 x10^3/uL (4.0-11.0) Red Blood Count 3.95 x10^6/uL (3.50-5.40) 3.57 x10^6/uL (3.50-5.40) Hemoglobin 11.1 g/dL (12.0-15.5) 10.2 g/dL (12.0-15.5) Hematocrit 33.4 % (36.0-47.0) 30.3 % (36.0-47.0) Mean Corpuscular Volume 85 fL (79-100) 85 fL (79-100) Mean Corpuscular Hemoglobin 28 pg (25-35) 28 pg (25-35) Mean Corpuscular Hemoglobin Concent 33 g/dL (31-37) 34 g/dL (31-37) Red Cell Distribution Width 14.6 % (11.5-14.5) 14.8 % (11.5-14.5) Platelet Count 372 x10^3/uL (140-400) 319 x10^3/uL (140-400) Neutrophils (%) (Auto) 72 % (31-73) 65 % (31-73) Lymphocytes (%) (Auto) 18 % (24-48) 26 % (24-48) Monocytes (%) (Auto) 8 % (0-9) 8 % (0-9) Eosinophils (%) (Auto) 2 % (0-3) 1 % (0-3) Basophils (%) (Auto) 1 % (0-3) 0 % (0-3) Neutrophils # (Auto) 7.7 x10^3uL (1.8-7.7) 6.4 x10^3uL (1.8-7.7) Lymphocytes # (Auto) 1.9 x10^3/uL (1.0-4.8) 2.6 x10^3/uL (1.0-4.8) Monocytes # (Auto) 0.9 x10^3/uL (0.0-1.1) 0.8 x10^3/uL (0.0-1.1) Eosinophils # (Auto) 0.2 x10^3/uL (0.0-0.7) 0.1 x10^3/uL (0.0-0.7) Basophils # (Auto) 0.1 x10^3/uL (0.0-0.2) 0.0 x10^3/uL (0.0-0.2) Prothrombin Time 12.9 SEC (11.7-14.0) Prothromb Time International Ratio 1.0 (0.8-1.1) Activated Partial Thromboplast Time 27 SEC (24-38) Sodium Level 135 mmol/L (136-145) 137 mmol/L (136-145) Potassium Level 3.9 mmol/L (3.5-5.1) 4.2 mmol/L (3.5-5.1) Chloride Level 97 mmol/L (98-107) 101 mmol/L (98-107) Carbon Dioxide Level 26 mmol/L (21-32) 23 mmol/L (21-32) Anion Gap 12 (6-14) 13 (6-14) Blood Urea Nitrogen 17 mg/dL (7-20) 15 mg/dL (7-20) Creatinine 1.0 mg/dL (0.6-1.0) 0.9 mg/dL (0.6-1.0) Estimated GFR (Cockcroft-Gault) 52.2 59.0 BUN/Creatinine Ratio 17 (6-20) Glucose Level 116 mg/dL (70-99) 100 mg/dL (70-99) Calcium Level 9.3 mg/dL (8.5-10.1) 8.7 mg/dL (8.5-10.1) Total Bilirubin 0.2 mg/dL (0.2-1.0) Aspartate Amino Transf (AST/SGOT) 22 U/L (15-37) Alanine Aminotransferase (ALT/SGPT) 20 U/L (14-59) Alkaline Phosphatase 87 U/L (46-116) Total Protein 8.7 g/dL (6.4-8.2) Albumin 3.7 g/dL (3.4-5.0) Albumin/Globulin Ratio 0.7 (1.0-1.7) Urine Collection Type U cath Urine Color Yellow Urine Clarity Clear Urine pH 6.0 Urine Specific [place] 1.010 Urine Protein 100 mg/dL (NEG-TRACE) Urine Glucose (UA) Negative mg/dL (NEG) Urine Ketones (Stick) Negative mg/dL (NEG) Urine Blood Trace (NEG) Urine Nitrite Negative (NEG) Urine Bilirubin Negative (NEG) Urine Urobilinogen Dipstick 0.2 mg/dL (0.2 mg/dL) Urine Leukocyte Esterase Negative (NEG) Urine RBC 1-2 /HPF (0-2) Urine WBC 0 /HPF (0-4) Urine Bacteria 0 /HPF (0-FEW) Urine Mucus Mod /LPF Triglycerides Level 623 mg/dL (0-150) Cholesterol Level 332 mg/dL (0-200) LDL Cholesterol, Calculated mg/dL (0-100) VLDL Cholesterol, Calculated 125 mg/dL (0-40) Non-HDL Cholesterol Calculated 304 mg/dL (0-129) HDL Cholesterol 28 mg/dL (40-60) Cholesterol/HDL Ratio 11.9 Laboratory Tests Test 03/30/17 20:19 03/30/17 20:38 03/31/17 04:30 White Blood Count 10.7 x10^3/uL (4.0-11.0) 9.8 x10^3/uL (4.0-11.0) Red Blood Count 3.95 x10^6/uL (3.50-5.40) 3.57 x10^6/uL (3.50-5.40) Hemoglobin 11.1 g/dL (12.0-15.5) 10.2 g/dL (12.0-15.5) Hematocrit 33.4 % (36.0-47.0) 30.3 % (36.0-47.0) Mean Corpuscular Volume 85 fL (79-100) 85 fL (79-100) Mean Corpuscular Hemoglobin 28 pg (25-35) 28 pg (25-35) Mean Corpuscular Hemoglobin Concent 33 g/dL (31-37) 34 g/dL (31-37) Red Cell Distribution Width 14.6 % (11.5-14.5) 14.8 % (11.5-14.5) Platelet Count 372 x10^3/uL (140-400) 319 x10^3/uL (140-400) Neutrophils (%) (Auto) 72 % (31-73) 65 % (31-73) Lymphocytes (%) (Auto) 18 % (24-48) 26 % (24-48) Monocytes (%) (Auto) 8 % (0-9) 8 % (0-9) Eosinophils (%) (Auto) 2 % (0-3) 1 % (0-3) Basophils (%) (Auto) 1 % (0-3) 0 % (0-3) Neutrophils # (Auto) 7.7 x10^3uL (1.8-7.7) 6.4 x10^3uL (1.8-7.7) Lymphocytes # (Auto) 1.9 x10^3/uL (1.0-4.8) 2.6 x10^3/uL (1.0-4.8) Monocytes # (Auto) 0.9 x10^3/uL (0.0-1.1) 0.8 x10^3/uL (0.0-1.1) Eosinophils # (Auto) 0.2 x10^3/uL (0.0-0.7) 0.1 x10^3/uL (0.0-0.7) Basophils # (Auto) 0.1 x10^3/uL (0.0-0.2) 0.0 x10^3/uL (0.0-0.2) Prothrombin Time 12.9 SEC (11.7-14.0) Prothromb Time International Ratio 1.0 (0.8-1.1) Activated Partial Thromboplast Time 27 SEC (24-38) Sodium Level 135 mmol/L (136-145) 137 mmol/L (136-145) Potassium Level 3.9 mmol/L (3.5-5.1) 4.2 mmol/L (3.5-5.1) Chloride Level 97 mmol/L (98-107) 101 mmol/L (98-107) Carbon Dioxide Level 26 mmol/L (21-32) 23 mmol/L (21-32) Anion Gap 12 (6-14) 13 (6-14) Blood Urea Nitrogen 17 mg/dL (7-20) 15 mg/dL (7-20) Creatinine 1.0 mg/dL (0.6-1.0) 0.9 mg/dL (0.6-1.0) Estimated GFR (Cockcroft-Gault) 52.2 59.0 BUN/Creatinine Ratio 17 (6-20) Glucose Level 116 mg/dL (70-99) 100 mg/dL (70-99) Calcium Level 9.3 mg/dL (8.5-10.1) 8.7 mg/dL (8.5-10.1) Total Bilirubin 0.2 mg/dL (0.2-1.0) Aspartate Amino Transf (AST/SGOT) 22 U/L (15-37) Alanine Aminotransferase (ALT/SGPT) 20 U/L (14-59) Alkaline Phosphatase 87 U/L (46-116) Total Protein 8.7 g/dL (6.4-8.2) Albumin 3.7 g/dL (3.4-5.0) Albumin/Globulin Ratio 0.7 (1.0-1.7) Urine Collection Type U cath Urine Color Yellow Urine Clarity Clear Urine pH 6.0 Urine Specific [place] 1.010 Urine Protein 100 mg/dL (NEG-TRACE) Urine Glucose (UA) Negative mg/dL (NEG) Urine Ketones (Stick) Negative mg/dL (NEG) Urine Blood Trace (NEG) Urine Nitrite Negative (NEG) Urine Bilirubin Negative (NEG) Urine Urobilinogen Dipstick 0.2 mg/dL (0.2 mg/dL) Urine Leukocyte Esterase Negative (NEG) Urine RBC 1-2 /HPF (0-2) Urine WBC 0 /HPF (0-4) Urine Bacteria 0 /HPF (0-FEW) Urine Mucus Mod /LPF Triglycerides Level 623 mg/dL (0-150) Cholesterol Level 332 mg/dL (0-200) LDL Cholesterol, Calculated mg/dL (0-100) VLDL Cholesterol, Calculated 125 mg/dL (0-40) Non-HDL Cholesterol Calculated 304 mg/dL (0-129) HDL Cholesterol 28 mg/dL (40-60) Cholesterol/HDL Ratio 11.[address] head: The ventricles are appropriate in size, shape, and location for the patient's age. No obvious intracranial mass, mass-effect, midline shift, or hemorrhage is identified. Basilar cisterns are patent. A well-defined area of low-attenuation is seen involving the medial inferior left cerebellar hemisphere measuring about 4.3 x 2.1 cm in maximum axial dimension. This is compatible with subacute left cerebellar infarction, probably in the left posterior inferior cerebellar artery territory. Moderate nonspecific periventricular and subcortical white matter low-attenuation is seen, likely representing changes of chronic microvascular ischemic disease. Bone windows demonstrate no acute calvarial abnormality. Mild left maxillary sinus disease is seen. Impression: 1. Subacute left cerebellar infarction. 2. Nonspecific white matter changes, probably from chronic microvascular ischemic disease. 3. Results discussed with emergency department staff, Dr. Pham, at 2000 hours. Carotids: Impression: Mild bilateral carotid plaque. There is no evidence of a hemodynamically significant stenosis within either common carotid or internal carotid artery system. Assessment/Plan Assessment/Plan Impression: Subacute left cerebellar stroke, that might have been the cause of her concussion last week, now with symptoms/signs referable to the left marisa or internal capsule Chronic hearing loss Recommendations: Brain MRI Carotids, already done Echocardiogram Rehabilitation modalities As discussed with Dr. Pham last night, she was not a TPA candidate because of the recent head injury, the CT findings, the improving symptoms, the low NIH score Continue aspirin and statin Thank you for letting me help with the patient's care. FELIPA ADEN MD Mar 31, 2017 10:31
[2017-03-31] MEDS ORDERED: DOCUSATE SODIUM 100 MG CAPSULE. PO PRN ×2 (10:45→11:00)
[2017-03-31] MEDS ORDERED: LOPERAMIDE 2 MG CAPSULE PO PRN (10:45)
[2017-03-31] MEDS ORDERED: ONDANSETRON PF 4 MG/2 ML VIAL. IV PRN (11:00)
[2017-03-31] MEDS ORDERED: MORPHINE SULFATE 2 MG/ML DISP.SYRIN. IV PRN (11:00)
[2017-03-31] MEDS ORDERED: hydrALAZINE 20 MG/ML VIAL. IVP PRN (11:00)
[2017-03-31] MEDS ORDERED: traMADol 50 MG TABLET PO PRN (11:00)
[2017-03-31 11:03] VITALS: BP 164/77
[2017-03-31] MEDS: LOSARTAN POTASSIUM 50 MG TABLET. PO SCH (11:25)
[2017-03-31] MEDS: amLODIPine BESYLATE 10 MG TABLET PO SCH (11:25)
[2017-03-31] MEDS: ATENOLOL 50 MG TABLET. PO SCH (11:25)
[2017-03-31] MEDS: MECLIZINE HCL 12.5 MG TABLET. PO SCH ×3 (11:26→23:55)
[2017-03-31] MEDS: PANTOPRAZOLE 40 MG TABLET.DR. PO SCH (11:26)
[2017-03-31] MEDS: SERTRALINE 25 MG TABLET. PO SCH (11:27)
--- NOTE | 2017-03-31 12:26 | PDOC ---
PROGRESS NOTES Chief Complaint Chief Complaint left cerebellar subacute stroke HTN HLD plan: fu with neuro Brain MRI, echo pending carotid US neg asa 325mg daily cont home meds for HTN add lipitor, dc simvastatin ptot check CXR with recent bronchitis dvt ppx History of Present Illness History of Present Illness mild cough right side weakness resolved Vitals Vitals Vital Signs Date Time Temp Pulse Resp B/P (MAP) Pulse Ox O2 Delivery O2 Flow Rate FiO2 03/31/17 11:25 83 164/77 03/31/17 11:03 98.0 20 96 Room Air 98.0 Physical Exam General: Alert, Oriented X3, Cooperative, No acute distress Heart: Regular rate, Normal S1, Normal S2 Lungs: Clear Abdomen: Normal bowel sounds, Soft Extremities: No clubbing, No edema Skin: No rashes, No significant lesion Labs LABS Laboratory Tests Test 03/30/17 20:19 03/30/17 20:38 03/31/17 04:30 White Blood Count 10.7 x10^3/uL (4.0-11.0) 9.8 x10^3/uL (4.0-11.0) Red Blood Count 3.95 x10^6/uL (3.50-5.40) 3.57 x10^6/uL (3.50-5.40) Hemoglobin 11.1 g/dL (12.0-15.5) 10.2 g/dL (12.0-15.5) Hematocrit 33.4 % (36.0-47.0) 30.3 % (36.0-47.0) Mean Corpuscular Volume 85 fL (79-100) 85 fL (79-100) Mean Corpuscular Hemoglobin 28 pg (25-35) 28 pg (25-35) Mean Corpuscular Hemoglobin Concent 33 g/dL (31-37) 34 g/dL (31-37) Red Cell Distribution Width 14.6 % (11.5-14.5) 14.8 % (11.5-14.5) Platelet Count 372 x10^3/uL (140-400) 319 x10^3/uL (140-400) Neutrophils (%) (Auto) 72 % (31-73) 65 % (31-73) Lymphocytes (%) (Auto) 18 % (24-48) 26 % (24-48) Monocytes (%) (Auto) 8 % (0-9) 8 % (0-9) Eosinophils (%) (Auto) 2 % (0-3) 1 % (0-3) Basophils (%) (Auto) 1 % (0-3) 0 % (0-3) Neutrophils # (Auto) 7.7 x10^3uL (1.8-7.7) 6.4 x10^3uL (1.8-7.7) Lymphocytes # (Auto) 1.9 x10^3/uL (1.0-4.8) 2.6 x10^3/uL (1.0-4.8) Monocytes # (Auto) 0.9 x10^3/uL (0.0-1.1) 0.8 x10^3/uL (0.0-1.1) Eosinophils # (Auto) 0.2 x10^3/uL (0.0-0.7) 0.1 x10^3/uL (0.0-0.7) Basophils # (Auto) 0.1 x10^3/uL (0.0-0.2) 0.0 x10^3/uL (0.0-0.2) Prothrombin Time 12.9 SEC (11.7-14.0) Prothromb Time International Ratio 1.0 (0.8-1.1) Activated Partial Thromboplast Time 27 SEC (24-38) Sodium Level 135 mmol/L (136-145) 137 mmol/L (136-145) Potassium Level 3.9 mmol/L (3.5-5.1) 4.2 mmol/L (3.5-5.1) Chloride Level 97 mmol/L (98-107) 101 mmol/L (98-107) Carbon Dioxide Level 26 mmol/L (21-32) 23 mmol/L (21-32) Anion Gap 12 (6-14) 13 (6-14) Blood Urea Nitrogen 17 mg/dL (7-20) 15 mg/dL (7-20) Creatinine 1.0 mg/dL (0.6-1.0) 0.9 mg/dL (0.6-1.0) Estimated GFR (Cockcroft-Gault) 52.2 59.0 BUN/Creatinine Ratio 17 (6-20) Glucose Level 116 mg/dL (70-99) 100 mg/dL (70-99) Calcium Level 9.3 mg/dL (8.5-10.1) 8.7 mg/dL (8.5-10.1) Total Bilirubin 0.2 mg/dL (0.2-1.0) Aspartate Amino Transf (AST/SGOT) 22 U/L (15-37) Alanine Aminotransferase (ALT/SGPT) 20 U/L (14-59) Alkaline Phosphatase 87 U/L (46-116) Total Protein 8.7 g/dL (6.4-8.2) Albumin 3.7 g/dL (3.4-5.0) Albumin/Globulin Ratio 0.7 (1.0-1.7) Urine Collection Type U cath Urine Color Yellow Urine Clarity Clear Urine pH 6.0 Urine Specific [place] 1.010 Urine Protein 100 mg/dL (NEG-TRACE) Urine Glucose (UA) Negative mg/dL (NEG) Urine Ketones (Stick) Negative mg/dL (NEG) Urine Blood Trace (NEG) Urine Nitrite Negative (NEG) Urine Bilirubin Negative (NEG) Urine Urobilinogen Dipstick 0.2 mg/dL (0.2 mg/dL) Urine Leukocyte Esterase Negative (NEG) Urine RBC 1-2 /HPF (0-2) Urine WBC 0 /HPF (0-4) Urine Bacteria 0 /HPF (0-FEW) Urine Mucus Mod /LPF Triglycerides Level 623 mg/dL (0-150) Cholesterol Level 332 mg/dL (0-200) LDL Cholesterol, Calculated mg/dL (0-100) VLDL Cholesterol, Calculated 125 mg/dL (0-40) Non-HDL Cholesterol Calculated 304 mg/dL (0-129) HDL Cholesterol 28 mg/dL (40-60) Cholesterol/HDL Ratio 11.9 Review of Systems Review of Systems no fever, chills, sob or chest pain Assessment and Plan Assessmemt and Plan Problems Medical Problems: (1) Acute CVA (cerebrovascular accident) Status: Acute Problems: Comment Review of Relevant I have reviewed the following items kayla (where applicable) has been applied. Labs Laboratory Tests Test 03/30/17 20:19 03/30/17 20:38 03/31/17 04:30 White Blood Count 10.7 x10^3/uL (4.0-11.0) 9.8 x10^3/uL (4.0-11.0) Red Blood Count 3.95 x10^6/uL (3.50-5.40) 3.57 x10^6/uL (3.50-5.40) Hemoglobin 11.1 g/dL (12.0-15.5) 10.2 g/dL (12.0-15.5) Hematocrit 33.4 % (36.0-47.0) 30.3 % (36.0-47.0) Mean Corpuscular Volume 85 fL (79-100) 85 fL (79-100) Mean Corpuscular Hemoglobin 28 pg (25-35) 28 pg (25-35) Mean Corpuscular Hemoglobin Concent 33 g/dL (31-37) 34 g/dL (31-37) Red Cell Distribution Width 14.6 % (11.5-14.5) 14.8 % (11.5-14.5) Platelet Count 372 x10^3/uL (140-400) 319 x10^3/uL (140-400) Neutrophils (%) (Auto) 72 % (31-73) 65 % (31-73) Lymphocytes (%) (Auto) 18 % (24-48) 26 % (24-48) Monocytes (%) (Auto) 8 % (0-9) 8 % (0-9) Eosinophils (%) (Auto) 2 % (0-3) 1 % (0-3) Basophils (%) (Auto) 1 % (0-3) 0 % (0-3) Neutrophils # (Auto) 7.7 x10^3uL (1.8-7.7) 6.4 x10^3uL (1.8-7.7) Lymphocytes # (Auto) 1.9 x10^3/uL (1.0-4.8) 2.6 x10^3/uL (1.0-4.8) Monocytes # (Auto) 0.9 x10^3/uL (0.0-1.1) 0.8 x10^3/uL (0.0-1.1) Eosinophils # (Auto) 0.2 x10^3/uL (0.0-0.7) 0.1 x10^3/uL (0.0-0.7) Basophils # (Auto) 0.1 x10^3/uL (0.0-0.2) 0.0 x10^3/uL (0.0-0.2) Prothrombin Time 12.9 SEC (11.7-14.0) Prothromb Time International Ratio 1.0 (0.8-1.1) Activated Partial Thromboplast Time 27 SEC (24-38) Sodium Level 135 mmol/L (136-145) 137 mmol/L (136-145) Potassium Level 3.9 mmol/L (3.5-5.1) 4.2 mmol/L (3.5-5.1) Chloride Level 97 mmol/L (98-107) 101 mmol/L (98-107) Carbon Dioxide Level 26 mmol/L (21-32) 23 mmol/L (21-32) Anion Gap 12 (6-14) 13 (6-14) Blood Urea Nitrogen 17 mg/dL (7-20) 15 mg/dL (7-20) Creatinine 1.0 mg/dL (0.6-1.0) 0.9 mg/dL (0.6-1.0) Estimated GFR (Cockcroft-Gault) 52.2 59.0 BUN/Creatinine Ratio 17 (6-20) Glucose Level 116 mg/dL (70-99) 100 mg/dL (70-99) Calcium Level 9.3 mg/dL (8.5-10.1) 8.7 mg/dL (8.5-10.1) Total Bilirubin 0.2 mg/dL (0.2-1.0) Aspartate Amino Transf (AST/SGOT) 22 U/L (15-37) Alanine Aminotransferase (ALT/SGPT) 20 U/L (14-59) Alkaline Phosphatase 87 U/L (46-116) Total Protein 8.7 g/dL (6.4-8.2) Albumin 3.7 g/dL (3.4-5.0) Albumin/Globulin Ratio 0.7 (1.0-1.7) Urine Collection Type U cath Urine Color Yellow Urine Clarity Clear Urine pH 6.0 Urine Specific [place] 1.010 Urine Protein 100 mg/dL (NEG-TRACE) Urine Glucose (UA) Negative mg/dL (NEG) Urine Ketones (Stick) Negative mg/dL (NEG) Urine Blood Trace (NEG) Urine Nitrite Negative (NEG) Urine Bilirubin Negative (NEG) Urine Urobilinogen Dipstick 0.2 mg/dL (0.2 mg/dL) Urine Leukocyte Esterase Negative (NEG) Urine RBC 1-2 /HPF (0-2) Urine WBC 0 /HPF (0-4) Urine Bacteria 0 /HPF (0-FEW) Urine Mucus Mod /LPF Triglycerides Level 623 mg/dL (0-150) Cholesterol Level 332 mg/dL (0-200) LDL Cholesterol, Calculated mg/dL (0-100) VLDL Cholesterol, Calculated 125 mg/dL (0-40) Non-HDL Cholesterol Calculated 304 mg/dL (0-129) HDL Cholesterol 28 mg/dL (40-60) Cholesterol/HDL Ratio 11.9 Laboratory Tests Test 03/30/17 20:19 03/30/17 20:38 03/31/17 04:30 White Blood Count 10.7 x10^3/uL (4.0-11.0) 9.8 x10^3/uL (4.0-11.0) Red Blood Count 3.95 x10^6/uL (3.50-5.40) 3.57 x10^6/uL (3.50-5.40) Hemoglobin 11.1 g/dL (12.0-15.5) 10.2 g/dL (12.0-15.5) Hematocrit 33.4 % (36.0-47.0) 30.3 % (36.0-47.0) Mean Corpuscular Volume 85 fL (79-100) 85 fL (79-100) Mean Corpuscular Hemoglobin 28 pg (25-35) 28 pg (25-35) Mean Corpuscular Hemoglobin Concent 33 g/dL (31-37) 34 g/dL (31-37) Red Cell Distribution Width 14.6 % (11.5-14.5) 14.8 % (11.5-14.5) Platelet Count 372 x10^3/uL (140-400) 319 x10^3/uL (140-400) Neutrophils (%) (Auto) 72 % (31-73) 65 % (31-73) Lymphocytes (%) (Auto) 18 % (24-48) 26 % (24-48) Monocytes (%) (Auto) 8 % (0-9) 8 % (0-9) Eosinophils (%) (Auto) 2 % (0-3) 1 % (0-3) Basophils (%) (Auto) 1 % (0-3) 0 % (0-3) Neutrophils # (Auto) 7.7 x10^3uL (1.8-7.7) 6.4 x10^3uL (1.8-7.7) Lymphocytes # (Auto) 1.9 x10^3/uL (1.0-4.8) 2.6 x10^3/uL (1.0-4.8) Monocytes # (Auto) 0.9 x10^3/uL (0.0-1.1) 0.8 x10^3/uL (0.0-1.1) Eosinophils # (Auto) 0.2 x10^3/uL (0.0-0.7) 0.1 x10^3/uL (0.0-0.7) Basophils # (Auto) 0.1 x10^3/uL (0.0-0.2) 0.0 x10^3/uL (0.0-0.2) Prothrombin Time 12.9 SEC (11.7-14.0) Prothromb Time International Ratio 1.0 (0.8-1.1) Activated Partial Thromboplast Time 27 SEC (24-38) Sodium Level 135 mmol/L (136-145) 137 mmol/L (136-145) Potassium Level 3.9 mmol/L (3.5-5.1) 4.2 mmol/L (3.5-5.1) Chloride Level 97 mmol/L (98-107) 101 mmol/L (98-107) Carbon Dioxide Level 26 mmol/L (21-32) 23 mmol/L (21-32) Anion Gap 12 (6-14) 13 (6-14) Blood Urea Nitrogen 17 mg/dL (7-20) 15 mg/dL (7-20) Creatinine 1.0 mg/dL (0.6-1.0) 0.9 mg/dL (0.6-1.0) Estimated GFR (Cockcroft-Gault) 52.2 59.0 BUN/Creatinine Ratio 17 (6-20) Glucose Level 116 mg/dL (70-99) 100 mg/dL (70-99) Calcium Level 9.3 mg/dL (8.5-10.1) 8.7 mg/dL (8.5-10.1) Total Bilirubin 0.2 mg/dL (0.2-1.0) Aspartate Amino Transf (AST/SGOT) 22 U/L (15-37) Alanine Aminotransferase (ALT/SGPT) 20 U/L (14-59) Alkaline Phosphatase 87 U/L (46-116) Total Protein 8.7 g/dL (6.4-8.2) Albumin 3.7 g/dL (3.4-5.0) Albumin/Globulin Ratio 0.7 (1.0-1.7) Urine Collection Type U cath Urine Color Yellow Urine Clarity Clear Urine pH 6.0 Urine Specific [place] 1.010 Urine Protein 100 mg/dL (NEG-TRACE) Urine Glucose (UA) Negative mg/dL (NEG) Urine Ketones (Stick) Negative mg/dL (NEG) Urine Blood Trace (NEG) Urine Nitrite Negative (NEG) Urine Bilirubin Negative (NEG) Urine Urobilinogen Dipstick 0.2 mg/dL (0.2 mg/dL) Urine Leukocyte Esterase Negative (NEG) Urine RBC 1-2 /HPF (0-2) Urine WBC 0 /HPF (0-4) Urine Bacteria 0 /HPF (0-FEW) Urine Mucus Mod /LPF Triglycerides Level 623 mg/dL (0-150) Cholesterol Level 332 mg/dL (0-200) LDL Cholesterol, Calculated mg/dL (0-100) VLDL Cholesterol, Calculated 125 mg/dL (0-40) Non-HDL Cholesterol Calculated 304 mg/dL (0-129) HDL Cholesterol 28 mg/dL (40-60) Cholesterol/HDL Ratio 11.9 Medications Current Medications Sodium Chloride 1,000 ml @ 1,000 mls/hr Q1H IV Last administered on 03/30/17 20:27; Start 03/30/17 at 20:00; Stop 03/30/17 at 20:59; Status DC Aspirin (Ecotrin) 325 mg 1X ONCE PO Last administered on 03/30/17 20:27; Start 03/30/17 at 20:00; Stop 03/30/17 at 20:32; Status DC Ondansetron HCl (Zofran) 4 mg PRN Q8HRS PRN IV NAUSEA/VOMITING; Start 03/30/17 at 21:30; Stop 03/31/17 at 10:50; Status DC Fentanyl Citrate (Fentanyl 2ml Vial) 50 mcg PRN Q2HR PRN IV PAIN; Start at 21:30; Stop 03/31/17 at 21:29 Sodium Chloride 1,000 ml @ 100 mls/hr Q10H IV Last administered on 03/31/17 10:29; Start 03/30/17 at 21:17; Stop 03/31/17 at 21:16 Acetaminophen (Tylenol) 650 mg PRN Q4HRS PRN PO FEVER; Start 03/30/17 at 21:30 ; Stop 03/31/17 at 10:50; Status DC Aspirin (Angelica Aspirin) 325 mg DAILYWBKFT PO ; Start 03/31/17 at 08:00; Stop at 10:16; Status DC Simvastatin (Zocor) 10 mg QHS PO ; Start 03/31/17 at 21:00 Aspirin (Ecotrin) 325 mg DAILYWBKFT PO ; Start 04/01/17 at 08:00 Aspirin (Ecotrin) 325 mg 1X ONCE PO Last administered on 03/31/17 10:28; Start 03/31/17 at 10:15; Stop 03/31/17 at 10:17; Status DC Acetaminophen (Tylenol) 650 mg PRN Q6HRS PRN PO PAIN; Start 03/31/17 at 10:30 Acetaminophen (Tylenol) 650 mg BID PO ; Start 03/31/17 at 21:00 Clonidine HCl (Catapres) 0.1 mg TID PO ; Start 03/31/17 at 14:00 Docusate Sodium (Colace) 100 mg PRN DAILY PRN PO CONSTIPATION; Start 03/31/17 at 10:45 Loperamide HCl (Imodium) 2 mg PRN Q2HR PRN PO DIARRHEA; Start 03/31/17 at 10:45 Sertraline HCl (Zoloft) 25 mg DAILY PO Last administered on 03/31/17 11:27; Start 03/31/17 at 11:30 Pantoprazole Sodium (Protonix) 40 mg DAILYAC PO Last administered on 03/31/17 11:26; Start 03/31/17 at 11:30 Meclizine HCl (Antivert) 25 mg Q6HRS PO Last administered on 03/31/17 11:26; Start 03/31/17 at 12:00 Losartan Potassium (Cozaar) 100 mg DAILY PO Last administered on 03/31/17 11: 25; Start 03/31/17 at 11:30 Amlodipine Besylate (Norvasc) 10 mg DAILY PO Last administered on 03/31/17 11: 25; Start 03/31/17 at 11:30 Atenolol (Tenormin) 50 mg DAILY PO Last administered on 03/31/17 11:25; Start 03/31/17 at 11:30 Acetaminophen (Tylenol) 650 mg PRN Q6HRS PRN PO FEVER; Start 03/31/17 at 11:00 ; Status UNV Ondansetron HCl (Zofran) 4 mg PRN Q6HRS PRN IV NAUSEA/VOMITING; Start 03/31/17 at 11:00 Morphine Sulfate 2 mg PRN Q2HR PRN IV PAIN; Start 03/31/17 at 11:00 Tramadol HCl (Ultram) 50 mg PRN Q6HRS PRN PO PAIN; Start 03/31/17 at 11:00 Hydralazine HCl (Apresoline) 10 mg PRN Q4HRS PRN IVP ELEVATED BP, SEE COMMENTS ; Start 03/31/17 at 11:00 Docusate Sodium (Colace) 100 mg PRN DAILY PRN PO CONSTIPATION; Start 03/31/17 at 11:00; Status UNV Active Scripts Active Reported Anti-Diarrheal (Loperamide Hcl) 2 Mg Capsule 2 Mg PO Q2HR PRN Colace (Docusate Sodium) 100 Mg Capsule 100 Mg PO DAILY PRN Tylenol (Acetaminophen) 325 Mg Tablet 650 Mg PO BID Meclizine Hcl 25 Mg Tablet 25 Mg PO Q6HRS Amlodipine Besylate 10 Mg Tablet 10 Mg PO DAILY Atenolol 50 Mg Tablet 50 Mg PO DAILY Clonidine Hcl 0.1 Mg Tablet 0.1 Mg PO TID Prevacid (Lansoprazole) 30 Mg Capsule.dr 30 Mg PO DAILY Zoloft (Sertraline Hcl) 25 Mg Tablet 25 Mg PO DAILY Benicar (Olmesartan Medoxomil) 40 Mg Tablet 40 Mg PO DAILY Vitals/I & O Vital Sign - Last 24 Hours 6/03/30/17 03/30/17 03/30/17 19:30 20:00 20:15 20:30 Temp 97.9 97.9 Pulse 64 62 64 63 Resp 20 B/P (MAP) 186/84 (118) 176/79 (111) 171/77 (108) 181/73 (109) Pulse Ox 95 97 97 95 O2 Delivery Room Air Room Air Room Air Room Air 03/30/17 03/30/17 03/30/17 03/30/17 20:48 21:00 21:00 21:05 Temp 97.8 97.8 Pulse 65 69 66 Resp 28 B/P (MAP) 174/81 (112) 201/81 (121) 160/72 (101) Pulse Ox 98 98 98 O2 Delivery Room Air Room Air Room Air Room Air 03/30/17 03/31/17 03/31/17 03/31/17 23:00 03:00 07:22 08:00 Temp 98.0 98.0 98.2 98.0 98.0 98.2 Pulse 65 62 71 Resp 24 20 20 B/P (MAP) 169/73 (105) 158/69 (98) 176/66 (102) Pulse Ox 96 97 95 O2 Delivery Room Air Room Air Room Air Room Air 03/31/17 03/31/17 03/31/17 03/31/17 11:03 11:25 11:25 11:25 Temp 98.0 98.0 Pulse 83 83 83 83 Resp 20 B/P (MAP) 164/77 (106) 164/77 164/77 164/77 Pulse Ox 96 O2 Delivery Room Air Intake and Output 03/30/17 03/30/17 03/31/17 15:00 23:00 07:00 Intake Total 50 ml Output Total 1550 ml Balance -1500 ml REAL COLLAZO MD Mar 31, 2017 12:26
--- NOTE | 2017-03-31 13:21 | RAD ---
MRI of the brain without contrast 03/31/2017 Clinical History: Right-sided facial droop. Technique: Unenhanced T1-weighted sagittal and axial, T2-weighted axial and coronal and FLAIR, gradient echo and diffusion-weighted axial images of the brain were obtained. Findings: Comparison is made to the patient's CT scan of the head performed earlier today. Images from the study are degraded by patient motion. There is generalized parenchymal atrophy. Patchy, confluent and multiple focal areas of increased signal intensity are seen within the periventricular and subcortical white matter of both cerebral hemispheres on the FLAIR and T2-weighted images consistent with areas of fairly extensive small vessel ischemic disease. An area of restricted diffusion is seen involving the inferior left cerebellar hemisphere. This measures 5.1 cm in greatest diameter. This is consistent with an area of acute infarction. This corresponds to the low-attenuation area seen on the patient's CT scan. This is in a left PICA distribution. There is mild surrounding edema and associated mass effect without evidence of midline shift. No additional acute parenchymal abnormality is seen. No extra-axial fluid collection is noted. The paranasal sinuses are essentially clear. Normal flow voids are seen within the major vascular structures surrounding the brain parenchyma. IMPRESSION: Findings are seen consistent with an acute area of infarction involving the inferior left cerebellar hemisphere as outlined above. There is mild surrounding edema and associated mass effect. No midline shift is seen. The patient's nurse was notified of this finding. Electronically signed by: Balwinder Cowart MD (03/31/2017 1:18 PM)
--- NOTE | 2017-03-31 13:47 | RAD ---
Indication: Bronchitis. Time of exam 1332 hours. No prior studies are available for comparison. The heart size is unremarkable. The lungs are clear. No infiltrate or failure is detected. No effusion or pneumothorax is seen. Impression: No acute cardiopulmonary process is detected.
[2017-03-31] MEDS: cloNIDine HCL 0.1 MG TABLET PO SCH ×2 (14:07→20:06)
[2017-03-31 14:35] VITALS: BP 142/66
[2017-03-31 19:00] VITALS: BP 162/64
[2017-03-31] MEDS: ACETAMINOPHEN 325 MG TABLET. PO SCH (20:03)
[2017-03-31] MEDS: ATORVASTATIN CALCIUM 40 MG TABLET. PO SCH ×2 (20:04→20:12)
--- NOTE | 2017-03-31 20:53 | CARD ---
APPROVED REPORT EXAM: Two-dimensional and M-mode echocardiogram with Doppler and color Doppler. Other Information Quality : Good INDICATION CVA/TIA 2D DIMENSIONS RVDd3.0 (2.9-3.5cm)Left Atrium(2D)4.2 (1.6-4.0cm) IVSd1.1 (0.7-1.1cm)Aortic Root(2D)2.8 (2.0-3.7cm) LVDd4.8 (3.9-5.9cm)LVOT Diameter1.8 (1.8-2.4cm) PWd1.1 (0.7-1.1cm)LVDs2.5 (2.5-4.0cm) FS (%) 30.0 %SV85.8 ml LVEF(%)60.0 (>50%) Aortic Valve AoV Peak Charlie.156.7cm/sAoV VTI31.2cm AO Peak GR.9.8mmHgLVOT Peak Charlie.134.2cm/s AO Mean GR.5mmHgAVA (VMAX)2.18cm2 BARRON (VTI)2.53fo0OK P 1/2 Adrr751ft Mitral Valve MV E Jlfvaihh33.6cm/sMV DECEL [id number] MV A Uqjcygbo989.5cm/sE/A Ratio0.7 Tricuspid Valve TR P. [id number]/sRAP [id number] TR Peak Gr.13ntAfDKPC25xwYy Pulmonary Vein S1 Ocngahyw42.1cm/sD2 Yvepqrul33.4cm/s PVa [id number] LEFT VENTRICLE The left ventricle is normal size. There is normal left ventricular wall thickness. The left ventricu lar systolic function is normal . The Ejection Fraction is 55-60%. There is normal LV segmental wall motion. Transmitral Doppler flow pattern is Grade I-abnormal relaxation pattern. RIGHT VENTRICLE The right ventricle is normal size. The right ventricular systolic function is normal. ATRIA The left atrium is mildly dilated. The right atrium size is normal. The interatrial septum is intact with no evidence for an atrial septal defect or patent foramen ovale as noted on 2-D or Doppler imagi ng. AORTIC VALVE The aortic valve is calcified but opens well. Doppler and Color Flow revealed mild aortic regurgitati on. There is no significant aortic valvular stenosis. MITRAL VALVE The mitral valve is normal in structure and function. There is no evidence of mitral valve prolapse. There is no mitral valve stenosis. Doppler and Color-flow revealed trace mitral regurgitation. TRICUSPID VALVE The tricuspid valve is normal in structure and function. Doppler and Color Flow revealed trace to mil d tricuspid regurgitation. The PA pressure was estimated at 29 mmHg. There is no tricuspid valve sten osis. PULMONIC VALVE The pulmonary valve is normal in structure and function. Doppler and Color Flow revealed trace to mil d pulmonic valvular regurgitation. There is no pulmonic valvular stenosis. GREAT VESSELS The aortic root is normal in size. The ascending aorta is not well seen. The IVC is normal in size an d collapses >50% with inspiration. PERICARDIAL EFFUSION There is no evidence of significant pericardial effusion. Critical Notification Critical Value: No <Conclusion> The left ventricle is normal size. There is normal left ventricular wall thickness. The left ventricular systolic function is normal . The Ejection Fraction is 55-60%. Transmitral Doppler flow pattern is Grade I-abnormal relaxation pattern. There is no evidence of significant pericardial effusion. There is no mitral valve stenosisand a trace mitral regurgitation The left atrium is mildly enlarged The aortic valve is tricuspid and the valve leaflets are mildly thickened. There is no aortic stenosis and a mild aortic regurgitation The right ventricle is of a normal size with normal systolic function. Doppler and Color Flow revealed trace to mild tricuspid regurgitation. The PA pressure was estimated at 29 mmHg. The pulmonic valve is normal.
[2017-03-31] MEDS ORDERED: SIMVASTATIN 10 MG TABLET PO SCH (21:00)
[2017-03-31 23:00] VITALS: BP 144/96
[2017-04-01 03:00] VITALS: BP 116/62
[2017-04-01] MEDS: MECLIZINE HCL 12.5 MG TABLET. PO SCH ×2 (05:41→12:00)
[2017-04-01 06:06] LABS: BASO # 0.1 x10^3/uL (0.0-0.2); BASO % 1 % (0-3); EOS % 4 % (0-3); HEMATOCRIT 29.9 % (36.0-47.0); LYMPH # 2.7 x10^3/uL (1.0-4.8); LYMPH % 32 % (24-48); MEAN CORPUSCULAR HEMOGLOBIN 29 pg (25-35); MEAN CORPUSCULAR HGB CONC 34 g/dL (31-37); MEAN CORPUSCULAR VOLUME 86 fL (79-100); MONO % 11 % (0-9); NEUT % 53 % (31-73); PLATELET COUNT 334 x10^3/uL (140-400); RED BLOOD COUNT 3.48 x10^6/uL (3.50-5.40); RED CELL DISTRIBUTION WIDTH 14.7 % (11.5-14.5); WHITE BLOOD COUNT 8.6 x10^3/uL (4.0-11.0)
[2017-04-01 06:21] LABS: CALCIUM 8.5 mg/dL (8.5-10.1); CREATININE 0.9 mg/dL (0.6-1.0); POTASSIUM 4.1 mmol/L (3.5-5.1)
[2017-04-01 07:42] VITALS: BP 129/69
[2017-04-01] MEDS: PANTOPRAZOLE 40 MG TABLET.DR. PO SCH (07:55)
[2017-04-01] MEDS: amLODIPine BESYLATE 10 MG TABLET PO SCH (07:56)
[2017-04-01] MEDS: cloNIDine HCL 0.1 MG TABLET PO SCH (07:57)
[2017-04-01] MEDS: ACETAMINOPHEN 325 MG TABLET. PO SCH (07:57)
[2017-04-01] MEDS: ATENOLOL 50 MG TABLET. PO SCH (07:59)
[2017-04-01] MEDS ORDERED: ASPIRIN ENTERIC COATED 325 MG TABLET.DR. PO SCH (08:00)
[2017-04-01] MEDS: LOSARTAN POTASSIUM 50 MG TABLET. PO SCH (08:01)
[2017-04-01] MEDS: SERTRALINE 25 MG TABLET. PO SCH (08:04)
[2017-04-01 10:48] VITALS: BP 135/60
[2017-04-01] MEDS ORDERED: ATOR40TA59 PO (11:25)
[2017-04-01] MEDS ORDERED: ASPI325T11 PO (11:25)
--- NOTE | 2017-04-01 11:39 | PDOC ---
PROGRESS NOTES Assessment Problems Medical Problems: (1) Acute CVA (cerebrovascular accident) Status: Acute Acute left cerebellar stroke as seen on MRI, dating the infarct to probably less than a week ago; therefore, her concussion was not related to this infarct Chronic hearing loss Plan See how she does today in therapy, make decision about inpatient versus outpatient rehab Continue aspirin and statin Subjective She wants to go home Objective Vital Signs Date Time Temp Pulse Resp B/P (MAP) Pulse Ox O2 Delivery O2 Flow Rate FiO2 04/01/17 10:48 98.2 72 20 135/60 (85) 95 Room Air 98.2 Intake and Output 04/01/17 07:00 Intake Total 2400 ml Output Total 800 ml Balance 1600 ml Intake Oral 1400 ml Blood Product IV Normal Saline Flush 1000 ml Stool Total 800 ml # Voids 4 PHYSICAL EXAM Alert. Oriented to time, place and person. PERRL. EOMI. CN: no focal findings. Muscle tone: normal. Muscle strength: 5-/5 right hemiparesis DTR: 2+ Plantar reflex: flexor Gait: not examined in bed. Sensory exam: no abnormal findings. No cerebellar signs elicited. Review of Relevant I have reviewed the following items kayla (where applicable) has been applied. Labs Laboratory Tests Test 03/30/17 20:19 03/30/17 20:38 03/31/17 04:30 04/01/17 05:00 White Blood Count 10.7 x10^3/uL (4.0-11.0) 9.8 x10^3/uL (4.0-11.0) 8.6 x10^3/uL (4.0-11.0) Red Blood Count 3.95 x10^6/uL (3.50-5.40) 3.57 x10^6/uL (3.50-5.40) 3.48 x10^6/uL (3.50-5.40) Hemoglobin 11.1 g/dL (12.0-15.5) 10.2 g/dL (12.0-15.5) 10.0 g/dL (12.0-15.5) Hematocrit 33.4 % (36.0-47.0) 30.3 % (36.0-47.0) 29.9 % (36.0-47.0) Mean Corpuscular Volume 85 fL (79-100) 85 fL (79-100) 86 fL (79-100) Mean Corpuscular Hemoglobin 28 pg (25-35) 28 pg (25-35) 29 pg (25-35) Mean Corpuscular Hemoglobin Concent 33 g/dL (31-37) 34 g/dL (31-37) 34 g/dL (31-37) Red Cell Distribution Width 14.6 % (11.5-14.5) 14.8 % (11.5-14.5) 14.7 % (11.5-14.5) Platelet Count 372 x10^3/uL (140-400) 319 x10^3/uL (140-400) 334 x10^3/uL (140-400) Neutrophils (%) (Auto) 72 % (31-73) 65 % (31-73) 53 % (31-73) Lymphocytes (%) (Auto) 18 % (24-48) 26 % (24-48) 32 % (24-48) Monocytes (%) (Auto) 8 % (0-9) 8 % (0-9) 11 % (0-9) Eosinophils (%) (Auto) 2 % (0-3) 1 % (0-3) 4 % (0-3) Basophils (%) (Auto) 1 % (0-3) 0 % (0-3) 1 % (0-3) Neutrophils # (Auto) 7.7 x10^3uL (1.8-7.7) 6.4 x10^3uL (1.8-7.7) 4.5 x10^3uL (1.8-7.7) Lymphocytes # (Auto) 1.9 x10^3/uL (1.0-4.8) 2.6 x10^3/uL (1.0-4.8) 2.7 x10^3/uL (1.0-4.8) Monocytes # (Auto) 0.9 x10^3/uL (0.0-1.1) 0.8 x10^3/uL (0.0-1.1) 0.9 x10^3/uL (0.0-1.1) Eosinophils # (Auto) 0.2 x10^3/uL (0.0-0.7) 0.1 x10^3/uL (0.0-0.7) 0.4 x10^3/uL (0.0-0.7) Basophils # (Auto) 0.1 x10^3/uL (0.0-0.2) 0.0 x10^3/uL (0.0-0.2) 0.1 x10^3/uL (0.0-0.2) Prothrombin Time 12.9 SEC (11.7-14.0) Prothromb Time International Ratio 1.0 (0.8-1.1) Activated Partial Thromboplast Time 27 SEC (24-38) Sodium Level 135 mmol/L (136-145) 137 mmol/L (136-145) 138 mmol/L (136-145) Potassium Level 3.9 mmol/L (3.5-5.1) 4.2 mmol/L (3.5-5.1) 4.1 mmol/L (3.5-5.1) Chloride Level 97 mmol/L (98-107) 101 mmol/L (98-107) 103 mmol/L (98-107) Carbon Dioxide Level 26 mmol/L (21-32) 23 mmol/L (21-32) 25 mmol/L (21-32) Anion Gap 12 (6-14) 13 (6-14) 10 (6-14) Blood Urea Nitrogen 17 mg/dL (7-20) 15 mg/dL (7-20) 14 mg/dL (7-20) Creatinine 1.0 mg/dL (0.6-1.0) 0.9 mg/dL (0.6-1.0) 0.9 mg/dL (0.6-1.0) Estimated GFR (Cockcroft-Gault) 52.2 59.0 59.0 BUN/Creatinine Ratio 17 (6-20) Glucose Level 116 mg/dL (70-99) 100 mg/dL (70-99) 98 mg/dL (70-99) Calcium Level 9.3 mg/dL (8.5-10.1) 8.7 mg/dL (8.5-10.1) 8.5 mg/dL (8.5-10.1) Total Bilirubin 0.2 mg/dL (0.2-1.0) Aspartate Amino Transf (AST/SGOT) 22 U/L (15-37) Alanine Aminotransferase (ALT/SGPT) 20 U/L (14-59) Alkaline Phosphatase 87 U/L (46-116) Total Protein 8.7 g/dL (6.4-8.2) Albumin 3.7 g/dL (3.4-5.0) Albumin/Globulin Ratio 0.7 (1.0-1.7) Urine Collection Type U cath Urine Color Yellow Urine Clarity Clear Urine pH 6.0 Urine Specific [place] 1.010 Urine Protein 100 mg/dL (NEG-TRACE) Urine Glucose (UA) Negative mg/dL (NEG) Urine Ketones (Stick) Negative mg/dL (NEG) Urine Blood Trace (NEG) Urine Nitrite Negative (NEG) Urine Bilirubin Negative (NEG) Urine Urobilinogen Dipstick 0.2 mg/dL (0.2 mg/dL) Urine Leukocyte Esterase Negative (NEG) Urine RBC 1-2 /HPF (0-2) Urine WBC 0 /HPF (0-4) Urine Bacteria 0 /HPF (0-FEW) Urine Mucus Mod /LPF Triglycerides Level 623 mg/dL (0-150) Cholesterol Level 332 mg/dL (0-200) LDL Cholesterol, Calculated mg/dL (0-100) VLDL Cholesterol, Calculated 125 mg/dL (0-40) Non-HDL Cholesterol Calculated 304 mg/dL (0-129) HDL Cholesterol 28 mg/dL (40-60) Cholesterol/HDL Ratio 11.9 Laboratory Tests Test 04/01/17 05:00 White Blood Count 8.6 x10^3/uL (4.0-11.0) Red Blood Count 3.48 x10^6/uL (3.50-5.40) Hemoglobin 10.0 g/dL (12.0-15.5) Hematocrit 29.9 % (36.0-47.0) Mean Corpuscular Volume 86 fL (79-100) Mean Corpuscular Hemoglobin 29 pg (25-35) Mean Corpuscular Hemoglobin Concent 34 g/dL (31-37) Red Cell Distribution Width 14.7 % (11.5-14.5) Platelet Count 334 x10^3/uL (140-400) Neutrophils (%) (Auto) 53 % (31-73) Lymphocytes (%) (Auto) 32 % (24-48) Monocytes (%) (Auto) 11 % (0-9) Eosinophils (%) (Auto) 4 % (0-3) Basophils (%) (Auto) 1 % (0-3) Neutrophils # (Auto) 4.5 x10^3uL (1.8-7.7) Lymphocytes # (Auto) 2.7 x10^3/uL (1.0-4.8) Monocytes # (Auto) 0.9 x10^3/uL (0.0-1.1) Eosinophils # (Auto) 0.4 x10^3/uL (0.0-0.7) Basophils # (Auto) 0.1 x10^3/uL (0.0-0.2) Sodium Level 138 mmol/L (136-145) Potassium Level 4.1 mmol/L (3.5-5.1) Chloride Level 103 mmol/L (98-107) Carbon Dioxide Level 25 mmol/L (21-32) Anion Gap 10 (6-14) Blood Urea Nitrogen 14 mg/dL (7-20) Creatinine 0.9 mg/dL (0.6-1.0) Estimated GFR (Cockcroft-Gault) 59.0 Glucose Level 98 mg/dL (70-99) Calcium Level 8.5 mg/dL (8.5-10.1) Medications Current Medications Sodium Chloride 1,000 ml @ 1,000 mls/hr Q1H IV Last administered on 03/30/17 20:27; Start 03/30/17 at 20:00; Stop 03/30/17 at 20:59; Status DC Aspirin (Ecotrin) 325 mg 1X ONCE PO Last administered on 03/30/17 20:27; Start 03/30/17 at 20:00; Stop 03/30/17 at 20:32; Status DC Ondansetron HCl (Zofran) 4 mg PRN Q8HRS PRN IV NAUSEA/VOMITING; Start 03/30/17 at 21:30; Stop 03/31/17 at 10:50; Status DC Fentanyl Citrate (Fentanyl 2ml Vial) 50 mcg PRN Q2HR PRN IV PAIN; Start at 21:30; Stop 03/31/17 at 21:29; Status DC Sodium Chloride 1,000 ml @ 100 mls/hr Q10H IV Last administered on 03/31/17 20:03; Start 03/30/17 at 21:17; Stop 03/31/17 at 21:16; Status DC Acetaminophen (Tylenol) 650 mg PRN Q4HRS PRN PO FEVER; Start 03/30/17 at 21:30 ; Stop 03/31/17 at 10:50; Status DC Aspirin (Angelica Aspirin) 325 mg DAILYWBKFT PO ; Start 03/31/17 at 08:00; Stop at 10:16; Status DC Simvastatin (Zocor) 10 mg QHS PO ; Start 03/31/17 at 21:00; Stop 03/31/17 at 21: 00; Status DC Aspirin (Ecotrin) 325 mg DAILYWBKFT PO Last administered on 04/01/17 07:57; Start 04/01/17 at 08:00 Aspirin (Ecotrin) 325 mg 1X ONCE PO Last administered on 03/31/17 10:28; Start 03/31/17 at 10:15; Stop 03/31/17 at 10:17; Status DC Acetaminophen (Tylenol) 650 mg PRN Q6HRS PRN PO PAIN; Start 03/31/17 at 10:30 Acetaminophen (Tylenol) 650 mg BID PO Last administered on 04/01/17 07:57; Start 03/31/17 at 21:00 Clonidine HCl (Catapres) 0.1 mg TID PO Last administered on 04/01/17 07:57; Start 03/31/17 at 14:00 Docusate Sodium (Colace) 100 mg PRN DAILY PRN PO CONSTIPATION; Start 03/31/17 at 10:45 Loperamide HCl (Imodium) 2 mg PRN Q2HR PRN PO DIARRHEA; Start 03/31/17 at 10:45 Sertraline HCl (Zoloft) 25 mg DAILY PO Last administered on 03/31/17 11:27; Start 03/31/17 at 11:30 Pantoprazole Sodium (Protonix) 40 mg DAILYAC PO Last administered on 04/01/17 07:55; Start 03/31/17 at 11:30 Meclizine HCl (Antivert) 25 mg Q6HRS PO Last administered on 04/01/17 05:41; Start 03/31/17 at 12:00 Losartan Potassium (Cozaar) 100 mg DAILY PO Last administered on 03/31/17 11: 25; Start 03/31/17 at 11:30 Amlodipine Besylate (Norvasc) 10 mg DAILY PO Last administered on 04/01/17 07: 56; Start 03/31/17 at 11:30 Atenolol (Tenormin) 50 mg DAILY PO Last administered on 04/01/17 07:59; Start 03/31/17 at 11:30; Stop 04/01/17 at 09:54; Status DC Acetaminophen (Tylenol) 650 mg PRN Q6HRS PRN PO FEVER; Start 03/31/17 at 11:00 ; Status UNV Ondansetron HCl (Zofran) 4 mg PRN Q6HRS PRN IV NAUSEA/VOMITING; Start 03/31/17 at 11:00 Morphine Sulfate 2 mg PRN Q2HR PRN IV PAIN; Start 03/31/17 at 11:00 Tramadol HCl (Ultram) 50 mg PRN Q6HRS PRN PO PAIN; Start 03/31/17 at 11:00 Hydralazine HCl (Apresoline) 10 mg PRN Q4HRS PRN IVP ELEVATED BP, SEE COMMENTS ; Start 03/31/17 at 11:00 Docusate Sodium (Colace) 100 mg PRN DAILY PRN PO CONSTIPATION; Start 03/31/17 at 11:00; Status UNV Atorvastatin Calcium (Lipitor) 40 mg QHS PO ; Start 03/31/17 at 21:00 Active Scripts Active Atorvastatin Calcium 40 Mg Tablet 40 Mg PO QHS Aspirin Ec (Aspirin) 325 Mg Tablet. 325 Mg PO DAILYWBKFT Reported Anti-Diarrheal (Loperamide Hcl) 2 Mg Capsule 2 Mg PO Q2HR PRN Colace (Docusate Sodium) 100 Mg Capsule 100 Mg PO DAILY PRN Tylenol (Acetaminophen) 325 Mg Tablet 650 Mg PO BID Meclizine Hcl 25 Mg Tablet 25 Mg PO Q6HRS Amlodipine Besylate 10 Mg Tablet 10 Mg PO DAILY Atenolol 50 Mg Tablet 50 Mg PO DAILY Clonidine Hcl 0.1 Mg Tablet 0.1 Mg PO TID Prevacid (Lansoprazole) 30 Mg Capsule. 30 Mg PO DAILY Zoloft (Sertraline Hcl) 25 Mg Tablet 25 Mg PO DAILY Vitals/I & O Vital Sign - Last 24 Hours 03/31/17 03/31/17 03/31/17 03/31/17 14:07 14:35 19:00 20:00 Temp 99.3 98.1 99.3 98.1 Pulse 83 70 69 Resp 20 18 B/P (MAP) 164/77 142/66 (91) 162/64 (96) Pulse Ox 94 93 O2 Delivery Room Air Room Air Room Air 03/31/17 03/31/17 04/01/17 04/01/17 20:06 23:00 03:00 07:42 Temp 97.9 97.7 98.2 97.9 97.7 98.2 Pulse 64 60 58 53 Resp 18 18 20 B/P (MAP) 162/64 144/96 (112) 116/62 (80) 129/69 (89) Pulse Ox 92 94 96 O2 Delivery Room Air Room Air Room Air 04/01/17 04/01/17 04/01/17 04/01/17 07:56 07:57 07:59 08:00 Pulse 53 53 53 B/P (MAP) 129/69 129/69 129/69 O2 Delivery Room Air 04/01/17 10:48 Temp 98.2 98.2 Pulse 72 Resp 20 B/P (MAP) 135/60 (85) Pulse Ox 95 O2 Delivery Room Air Intake and Output 03/31/17 03/31/17 04/01/17 15:00 23:00 07:00 Intake Total 1500 ml 900 ml Output Total 800 ml Balance 700 ml 900 ml Images MRI brain: IMPRESSION: Findings are seen consistent with an acute area of infarction involving the inferior left cerebellar hemisphere as outlined above. There is mild surrounding edema and associated mass effect. No midline shift is seen. Echo: The left ventricle is normal size. There is normal left ventricular wall thickness. The left ventricular systolic function is normal . The Ejection Fraction is 55-60%. Transmitral Doppler flow pattern is Grade I-abnormal relaxation pattern. There is no evidence of significant pericardial effusion. There is no mitral valve stenosisand a trace mitral regurgitation The left atrium is mildly enlarged The aortic valve is tricuspid and the valve leaflets are mildly thickened. There is no aortic stenosis and a mild aortic regurgitation The right ventricle is of a normal size with normal systolic function. Doppler and Color Flow revealed trace to mild tricuspid regurgitation. The PA pressure was estimated at 29 mmHg. The pulmonic valve is normal. APPELBAUM,FELIPA S MD Apr 01, 2017 11:39
--- NOTE | 2017-04-01 12:43 | PDOC3 ---
Discharge Summary [facility] Date of Admission: Mar 30, 2017 Discharge Date: Apr 01, 2017 Admitting Diagnosis left cerebellar acute stroke HTN HLD chronic hearing loss Problems: Final Diagnosis CONSULTS neuro Brief Hospital Course Ms. Abbasi is a 89 old F, who recently fell at home and was diagnosed with concussion came to ER for right side weakness. MRI showed acute left cerebellar stroke. Carotid US, echo all neg. the weakness is resolved. altho PT recommend SNF, pt refused and basically walks fine. dc home with asa daily, pt dosenot want take lipitor till she talks to her PCP, prescription given. dc time 35min General: Alert, Oriented X3, Cooperative, No acute distress Heart: Regular rate, Normal S1, Normal S2. hard hearing Lungs: Clear Abdomen: Normal bowel sounds, Soft Extremities: No clubbing, No edema Skin: No rashes, No significant lesion Patient History: Unknown Problems: Disposition HH CONDITION AT DISCHARGE: Improved Diet regular Scheduled Acetaminophen (Tylenol), 650 MG PO BID, (Reported) Amlodipine Besylate (Amlodipine Besylate), 10 MG PO DAILY, (Reported) Aspirin (Aspirin Ec), 325 MG PO DAILYWBKFT Atenolol (Atenolol), 50 MG PO DAILY, (Reported) Atorvastatin Calcium (Atorvastatin Calcium), 40 MG PO QHS Clonidine Hcl (Clonidine Hcl), 0.1 MG PO TID, (Reported) Lansoprazole (Prevacid), 30 MG PO DAILY, (Reported) Meclizine Hcl (Meclizine Hcl), 25 MG PO Q6HRS, (Reported) Sertraline Hcl (Zoloft), 25 MG PO DAILY, (Reported) Scheduled PRN Docusate Sodium (Colace), 100 MG PO DAILY PRN for CONSTIPATION, (Reported) Loperamide Hcl (Anti-Diarrheal), 2 MG PO Q2HR PRN for DIARRHEA, (Reported) Discontinued Medications Olmesartan Medoxomil (Benicar), 40 MG PO DAILY, (Reported) Follow Up pcp , neuro in 2 weeks REAL COLLAZO MD Apr 01, 2017 12:43
== END 2017-04-01 14:09 | disposition home health service (06) | DRG 65 ==
LOC: ER 19:29 → 6 SOUTH 20:22
PROVIDERS: ADMIT Internal Medicine; ATTEND Internal Medicine
DX: I63.9 Cerebral infarction, unspecified (principal); G81.91 Hemiplegia, unspecified affecting right dominant side; I10 Essential (primary) hypertension; H91.90 Unspecified hearing loss, unspecified ear; E78.5 Hyperlipidemia, unspecified; R13.10 Dysphagia, unspecified; K21.9 Gastro-esophageal reflux disease without esophagitis; F32.9 Major depressive disorder, single episode, unspecified; F41.9 Anxiety disorder, unspecified; R29.704 NIHSS score 4; K59.00 Constipation, unspecified; M19.90 Unspecified osteoarthritis, unspecified site; R39.11 Hesitancy of micturition; R47.81 Slurred speech; Z91.041 Radiographic dye allergy status; Z88.5 Allergy status to narcotic agent; Z88.0 Allergy status to penicillin; Z82.49 Family history of ischemic heart disease and other diseases of the circulatory system; Z91.81 History of falling; Z88.2 Allergy status to sulfonamides; Z88.8 Allergy status to other drugs, medicaments and biological substances; Z91.048 Other nonmedicinal substance allergy status; Z79.899 Other long term (current) drug therapy; Z79.1 Long term (current) use of non-steroidal anti-inflammatories (NSAID)
CPT/HCPCS: 36415; 70450; 70551; 71010; 80048; 80053; 80061; 81001; 85027; 85610; 85730; 93005; 93306; 93880; 96360; J7030; J8597; 92610; 97110; 97530; 97535; 99285-25